=== PATIENT | male | born 1950 | race Caucasian/White ===

== ENCOUNTER 2019-09-03 16:14 | Observation (INO) | payer OTHER ==
[~2019-09-03] VITALS: Ht 172.7 cm; Wt 99.5 kg
[2019-09-03] MEDS ORDERED: FLOMAX0.4 MG PO (16:23)
[2019-09-03] MEDS ORDERED: PREVACID15 MG PO (16:23)
[2019-09-03] MEDS ORDERED: LIDOCAINE 5 % O35 GM TOPICAL (16:23)
[2019-09-03] MEDS ORDERED: VITAMIN D31000 UNI2 PO (16:24)
[2019-09-03] MEDS ORDERED: VESICARE5 MG PO (16:24)
[2019-09-03] MEDS ORDERED: ISOSORBIDE MONO30 M1 PO (16:24)
[2019-09-03] MEDS ORDERED: KLOR-CON 1010 MEQ PO (16:24)
[2019-09-03] MEDS ORDERED: CYMBALTA60 MG PO (16:25)
[2019-09-03] MEDS ORDERED: PROCARDIA XL60 MG PO (16:25)
[2019-09-03] MEDS ORDERED: NEURONTIN800 MG PO (16:25)
[2019-09-03] MEDS ORDERED: DONEPEZIL HCL10 MG PO (16:26)
[2019-09-03] MEDS ORDERED: LASIX40 MG PO (16:26)
[2019-09-03] MEDS ORDERED: ZOCOR80 MG PO (16:26)
[2019-09-03] MEDS ORDERED: DILAUDID8 MG PO (16:27)
[2019-09-03] MEDS ORDERED: VOLTAREN100 GM TOPICAL (16:27)
[2019-09-03 17:54] LABS: BASOPHILS 0.3 % (0-2); EOSINOPHILS 0.3 % (0-7); HEMATOCRIT 36.4 % (42.0-54.0); HEMOGLOBIN 11.9 g/dL (13.5-17.5); IMMATURE GRANULOCYTES 0.3 % (0-5); LYMPHOCYTES 15.1 % (15-50); MCH 27.9 pg (26.0-34.0); MCHC 32.7 g/dL (31.0-37.0); MCV 85.2 fL (80.0-100.0); MEAN PLATELET VOLUME 9.4 fL (7.4-10.4); MONOCYTES 9.4 % (2-11); NEUTROPHILS 74.6 % (40-80); PLATELET COUNT 255 10x3/uL (130-400); RBC 4.27 10x6/uL (4.20-6.10); RDW 15.1 % (11.5-14.5); WBC 7.2 10x3/uL (4.8-10.8)
[2019-09-03 18:04] LABS: APTT 29.7 SECONDS (22.8-39.4); INR 1.03 (0.85-1.17); PROTIME 13.4 SECONDS (11.6-15.0)
[2019-09-03 18:06] LABS: CALC OSMOLALITY 284 mosm/kg (275-300); CALCIUM 8.9 mg/dL (8.5-10.1); CARBON DIOXIDE 28.3 mmol/L (21.0-32.0); CHLORIDE - SERUM 106 mmol/L (98-107); CREATININE - SERUM 1.1 mg/dL (0.6-1.3); GLUCOSE 111 mg/dL (74-106); POTASSIUM - SERUM 3.9 mmol/L (3.5-5.1); SODIUM 143 mmol/L (136-145); UREA NITROGEN 11 mg/dL (7-18); eGFR NON AFRICAN AMERICAN 71 mL/min (90-120)
[2019-09-03 18:20] LABS: ALBUMIN 3.4 g/dL (3.4-5.0); ALKALINE PHOSPHATASE 95 U/L (46-116); ALT (SGPT) 19 U/L (10-68); BILIRUBIN - TOTAL 0.32 mg/dL (0.2-1.3); CKMB 1.3 U/L (0.0-3.6); CREATINE KINASE 71 UL (21-232); MAGNESIUM - SERUM 1.9 mg/dL (1.8-2.4); PROTEIN - SERUM 7.5 g/dL (6.4-8.2)
[2019-09-03 18:22] LABS: TROPONIN-I < 0.017 ng/mL (0.000-0.060)
[2019-09-03 18:56] VITALS: BP 100/61
[2019-09-03 23:47] VITALS: BP 131/72; Ht 172.7 cm; Wt 99.5 kg
[2019-09-04] VITALS: BP 123/60
--- NOTE | 2019-09-04 01:35 | NUR ---
PATIENT RESTING COMFORTABLY IN BED. RESPIRATIONS ARE EVEN AND UNLABORED. NO S/S OF DISTRESS. NO C/O PAIN CALL LIGHT WITHIN REACH. WILL CPOC.
[2019-09-04 04:30] VITALS: BP 119/58
[2019-09-04 04:34] LABS: BASOPHILS 0.3 % (0-2); EOSINOPHILS 1.1 % (0-7); HEMATOCRIT 32.9 % (42.0-54.0); HEMOGLOBIN 10.7 g/dL (13.5-17.5); LYMPHOCYTES 23.5 % (15-50); MCH 27.6 pg (26.0-34.0); MCHC 32.5 g/dL (31.0-37.0); MEAN PLATELET VOLUME 9.4 fL (7.4-10.4); MONOCYTES 11.5 % (2-11); NEUTROPHILS 63.6 % (40-80); PLATELET COUNT 251 10x3/uL (130-400); RBC 3.87 10x6/uL (4.20-6.10); RDW 15.3 % (11.5-14.5); WBC 6.3 10x3/uL (4.8-10.8)
[2019-09-04 05:06] LABS: CALC OSMOLALITY 284 mosm/kg (275-300); CALCIUM 8.5 mg/dL (8.5-10.1); CARBON DIOXIDE 25.7 mmol/L (21.0-32.0); CHLORIDE - SERUM 108 mmol/L (98-107); GLUCOSE 106 mg/dL (74-106); MAGNESIUM - SERUM 1.8 mg/dL (1.8-2.4); PHOSPHOROUS 4.2 mg/dL (2.5-4.9); POTASSIUM - SERUM 3.6 mmol/L (3.5-5.1); PRO BNP 533 pg/mL (0-125); SODIUM 142 mmol/L (136-145); THYROID STIMULATING HORMONE 0.75 uIU/mL (0.36-3.74); eGFR NON AFRICAN AMERICAN 79 mL/min (90-120)
[2019-09-04 05:11] LABS: UREA NITROGEN 19 mg/dL (7-18)
[2019-09-04 12:26] VITALS: BP 151/76
--- NOTE | 2019-09-04 13:32 | NUR ---
ORTHOSTATIC B/P: LYING 129/72 99, SITTING 138/73 105, STANDING 122/73 117.
[2019-09-04 16:02] VITALS: BP 129/84
--- NOTE | 2019-09-04 18:22 | MORECARE ---
CASE MANAGEMENT DISCHARGE SUMMARY PATIENT: ABRIL CALLAHAN UNIT: [id number] ADM DATE: 09/03/19 AGE: 69 : 52 SEX: M ROOM/BED: D.2115 AUTHOR: TORI GARCIA PHYSICIAN: REFERRING PHYSICIAN: TR SMITH MD DATE OF SERVICE: 09/04/19 Discharge Plan Patient Name: ABRIL CALLAHAN Facility: [facility]:[place] : 1950 Planned Disposition: Home Anticipated Discharge Date: 09/05/19 Discharge Date: Expected LOS: 2 Initial Reviewer: [email or web address] Initial Review Date: 09/03/2019 Generated: 09/04/19 7:22 pm Patient Name: ABRIL CALLAHAN Page 12422 at 1822 All edits/amendments must be made on the electronic document DICTATION DATE: 09/04/191821 CARD READER: LESLIE 09/04/191821 RPT#: [id number] DC DATE: STATUS: ADM IN [address] [place] [address] END OF REPORT
--- NOTE | 2019-09-04 18:30 | MORECARE ---
CASE MANAGEMENT DISCHARGE SUMMARY PATIENT: ABRIL CALLAHAN UNIT: [id number] ADM DATE: 09/03/19 AGE: 69 : 52 SEX: M ROOM/BED: D.5299 AUTHOR: JOSE,DOC PHYSICIAN: REFERRING PHYSICIAN: TR SMITH MD DATE OF SERVICE: 09/04/19 Discharge Plan Patient Name: ABRIL CALLAHAN Facility: [facility]:[place] : 1950 Planned Disposition: Home Anticipated Discharge Date: 09/05/19 Discharge Date: Expected LOS: 2 Initial Reviewer: [email or web address] Initial Review Date: 09/03/2019 Generated: 09/04/19 7:30 pm Comments DCP- Discharge Planning Updated by [email or web address]: Óscar Santos on 09/04/19 5:[address] Patient Name: ABRIL CALLAHAN Admission Status: ER Accout number: [id number] Admission Date: 09-03-2019 : 1950 Admission Diagnosis: Attending: ANDREW Current LOS: 1 Anticipated DC Date: 09-05-2019 Planned Disposition: Home Primary Insurance: [employer] Discharge Planning Comments: CM MET WITH PT IN ROOM TO DISCUSS DISCHARGE PLANNING AND NEEDS. PT REPORTS LIVING AT HOME INDEPENDENTLY WITH SPOUSE. PT HAS HOME OXYGEN CONCENTRATOR THAT GOES UP TO 10 LITERS, BENINESE CRUTHES AND ADJUSTABLE BED FROM [facility]. PT HAS NO OUTSIDE SERVICES ASSISTING IN THE HOME. CM DISCUSSED AVAILABILITY OF HOME HEALTH, REHAB SERVICES AND MEDICAL EQUIPMENT. PT DENIES DISCHARGE NEEDS AND DOES WANT [place] THE [place] TRANSF[place], REPORTS HIS WILL PICK HIM UP FOR DISCHARGE HOME. REY PAREDES CALLED [place] EXPEDITOR AND PLACED [place] TRAN[place]. PT PLANS TO COMPLETE TREATMENT AT [place] AND GO HOME WITH IF NO [place]. THERE IS NO [facility] BED AVAILABLE AT THIS TIME AND THE [place] WILL NOTIFY [place] IF A BED DOES COME AVAILABLE FOR TRANSFER. Anchor Operator: Óscar Santos DCPIA - Discharge Planning Initial Assessment Updated by [email or web address]: Óscar Santos on 09/04/19 6:22 pm * Is the patient Alert and Oriented? Yes * How many steps to enter\exit or inside your home? * PCP DR. ADAM, [facility] DR. GARDUNO * [facility] * Preadmission Environment Home with Family * ADLs Independent * Equipment Crutch Hospital Bed Oxygen * Other Equipment [facility] - MEDICAL EQUIPMENT PROVIDER * List name and contact numbers for known caregivers / representatives who currently or will assist patient after discharge: RAJEEV CALLAHAN, SPOUSE, * Verbal permission to speak to the caregivers and representatives has been obtained from the patient. N/A * Community resources currently utilized None * Please name any agencies selected above. NONE * Additional services required to return to the preadmission environment? No * Can the patient safely return to the preadmission environment? Yes * Has this patient been hospitalized within the prior 30 days at any hospital? No Last DP export: 09/04/19 5:22 p Patient Name: ABRIL CALLAHAN Page 67194 at 1830 All edits/amendments must be made on the electronic document DICTATION DATE: 09/04/191829 BOILER HELPER: LESLIE 09/04/191829 RPT#: [id number] DC DATE: STATUS: ADM IN [facility] [address] [place] [address] END OF REPORT
[2019-09-04 20:00] VITALS: BP 130/80
[2019-09-05] VITALS: BP 152/84
[2019-09-05 04:00] VITALS: BP 155/76
[2019-09-05 06:12] LABS: BASOPHILS 0.6 % (0-2); EOSINOPHILS 2.6 % (0-7); HEMATOCRIT 33.8 % (42.0-54.0); HEMOGLOBIN 10.9 g/dL (13.5-17.5); LYMPHOCYTES 30.9 % (15-50); MCH 27.2 pg (26.0-34.0); MCHC 32.2 g/dL (31.0-37.0); MCV 84.3 fL (80.0-100.0); MEAN PLATELET VOLUME 9.2 fL (7.4-10.4); MONOCYTES 11.7 % (2-11); NEUTROPHILS 54.2 % (40-80); PLATELET COUNT 237 10x3/uL (130-400); RBC 4.01 10x6/uL (4.20-6.10); RDW 15.2 % (11.5-14.5)
[2019-09-05 06:32] LABS: CALC OSMOLALITY 289 mosm/kg (275-300); CALCIUM 9.1 mg/dL (8.5-10.1); CARBON DIOXIDE 29.8 mmol/L (21.0-32.0); CHLORIDE - SERUM 109 mmol/L (98-107); GLUCOSE 100 mg/dL (74-106); MAGNESIUM - SERUM 2.1 mg/dL (1.8-2.4); PHOSPHOROUS 3.6 mg/dL (2.5-4.9); SODIUM 144 mmol/L (136-145); UREA NITROGEN 20 mg/dL (7-18)
[2019-09-05 06:45] LABS: CREATININE - SERUM 0.7 mg/dL (0.6-1.3); eGFR NON AFRICAN AMERICAN > 90 mL/min (90-120)
--- NOTE | 2019-09-05 07:15 | NUR ---
RECEIVED PT IN BED EYES CLOSED RESP UNLABORED SKIN W/D COLOR WNL NAD NOTED
[2019-09-05 09:02] VITALS: BP 151/84
[2019-09-05 13:00] VITALS: BP 135/90
--- NOTE | 2019-09-06 12:35 | MORECARE ---
CASE MANAGEMENT DISCHARGE SUMMARY PATIENT: ABRIL CALLAHAN UNIT: [id number] ADM DATE: 09/03/19 AGE: 69 : 52 SEX: M ROOM/BED: D.0383 AUTHOR: JOSE,DOC PHYSICIAN: REFERRING PHYSICIAN: TR SMITH MD DATE OF SERVICE: 09/06/19 Discharge Plan Patient Name: ABRIL CALLAHAN Facility: [facility]:[place] : 1950 Planned Disposition: Home Anticipated Discharge Date: 09/05/19 Discharge Date: 09/05/2019 Expected LOS: 2 Initial Reviewer: [email or web address] Initial Review Date: 09/03/2019 Generated: 09/06/19 1:34 pm DCP- Discharge Planning Updated by [email or web address]: Óscar Santos on 09/04/19 5:[address] Patient Name: ABRIL CALLAHAN Admission Status: ER Accout number: [id number] Admission Date: 09-03-2019 : 1950 Admission Diagnosis: Attending: ANDREW Current LOS: 1 Anticipated DC Date: 09-05-2019 Planned Disposition: Home Primary Insurance: [employer] Discharge Planning Comments: CM MET WITH PT IN ROOM TO DISCUSS DISCHARGE PLANNING AND NEEDS. PT REPORTS LIVING AT HOME INDEPENDENTLY WITH SPOUSE. PT HAS HOME OXYGEN CONCENTRATOR THAT GOES UP TO 10 LITERS, CYMRO CRUTHES AND ADJUSTABLE BED FROM [facility]. PT HAS NO OUTSIDE SERVICES ASSISTING IN THE HOME. CM DISCUSSED AVAILABILITY OF HOME HEALTH, REHAB SERVICES AND MEDICAL EQUIPMENT. PT DENIES DISCHARGE NEEDS AND DOES WANT TO BE ON THE [place] TRANSF[place] LIST, REPORTS HIS WILL PICK HIM UP FOR DISCHARGE HOME. REY PAREDES CALLED [place] EXPEDITOR AND PLACED PT ON [place] TRANSF[place]. PT PLANS TO COMPLETE TREATMENT AT [place] AND GO HOME WITH IF NO BED IS AVAILABLE AT [place]. THERE IS NO VA BED AVAILABLE AT THIS TIME AND THE NH WILL NOTIFY [place] IF A BED DOES COME AVAILABLE FOR TRANSFER. Licensing Director: Óscar Santos DCPIA - Discharge Planning Initial Assessment Updated by [id number]: Óscar Santos on 09/04/19 6:22 pm * Is the patient Alert and Oriented? Yes * How many steps to enter\exit or inside your home? * PCP DR. ADAM, [facility] DR. GARDUNO * [facility] * Preadmission Environment Home with Family * ADLs Independent * Equipment Crutch Hospital Bed Oxygen * Other Equipment [facility] - MEDICAL EQUIPMENT PROVIDER * List name and contact numbers for known caregivers / representatives who currently or will assist patient after discharge: RAJEEV CALLAHAN, SPOUSE, * Verbal permission to speak to the caregivers and representatives has been obtained from the patient. N/A * Community resources currently utilized None * Please name any agencies selected above. NONE * Additional services required to return to the preadmission environment? No * Can the patient safely return to the preadmission environment? Yes * Has this patient been hospitalized within the prior 30 days at any hospital? No Last DP export: 09/04/19 5:30 p Patient Name: ABRIL CALLAHAN Page 72087 at 1235 All edits/amendments must be made on the electronic document DICTATION DATE: 09/06/19 1234 MANAGER OF PRODUCT: LESLIE 09/06/19 1234 RPT#: [id number] DC DATE:09/05/19 STATUS: DIS IN [facility] [address] [place] [address] END OF REPORT
--- NOTE | 2019-09-07 12:18 | EC ---
PATIENT:ABRIL CALLAHAN DATE OF SERVICE: 09/03/19 SEX: M MEDICAL RECORD: [id number] DATE OF : [birth year] LOCATION:D.M2 D.211 AGE OF PATIENT: 69 ADMISSION DATE: 09/03/19 REFERRING PHYSICIAN: INTERPRETING PHYSICIAN: WALI POSADA MD ECHOCARDIOGRAM REPORT ECHO CHARGES 4 ECHO COMPLETE Date: 09/04/19 CLINICAL DIAGNOSIS: SYNCOPE, HYPOTENSION, HX: HYPRTENSION ECHOCARDIOGRAPHIC MEASUREMENTS (adult normal given) AC root (d.<3.7cm) 2.8 cm LV Septum d (<1.2 cm> 0.9 cm Valve Excursion 2.0 cm LV Septum (systole) 1.5 cm Left Atria (s.<4.0cm> 4.2 cm LVPW d(<1.2cm) 0.98 cm RV (d.<2.3cm) 3.2 cm LVPW (sytole) 1.0 cm LV diastole(<5.6CM) 5.7 cm MV E-F(>70mm/sec) cm LV systole 4.5 cm LVOT Diameter 1.7 cm MV exc.(>10mm) cm Est.ejection fraction (50-75%) % DOPPLER: LVIT cm/sec A 90 cm/sec E 79 cm/sec LA cm/sec RVSP 39.9 mmHg LVOT 137 cm/sec AOP1/2T m/s Asc. Ao 190 cm/sec RVOT 96 cm/sec RA cm/sec PA 144 cm/sec AV Gradient Peak 14.5 mmHg AV Mean 9.6 mmHg AV Area 1.6 cm MV Gradient Peak 4.3 mmHg MV Mean 2.9 mmHg MV Area cm COMMENTS: Financial Supervisor: Polo CARTER Accessioner: 3 Dr. Palmer TAPE# PACS Pericardial Effusion N DATE OF SERVICE: Adequate 2D echo, color flow imaging and spectral Doppler, and M-Mode No LVH. LV internal dimension is normal. Wall motion is normal. EF is greater than or equal to 55%. Aortic valve is tricuspid. No evidence of stenosis by Doppler interrogation. Left atrium is normal. Mitral valve shows no prolapse. Trace MR. Right-sided chambers are grossly normal. Trace TR. TRANSINT:[id number] Voice Confirmation ID: [id number] DOCUMENT ID: [id number] ECHOCARDIOGRAM REPORT [id number] KEISABRIL POPE,WALI Gallegos MD at 1218 CC: [id number] DICTATION DATE: 09/05/19 1017 CRAP SHOOTER: 09/05/19 1254 DIS IN 09/05/19 [facility] [address] [place] [address]
== END 2019-09-05 18:30 | disposition home or self-care (01) ==
LOC: D.ER 16:14 → D.M2 19:18 → OBSVTIME 19:18 → D.M2 19:18
PROVIDERS: Family Medicine; ADMIT Family Medicine; ATTEND Family Medicine
DX: R55 Syncope and collapse (principal); I95.9 Hypotension, unspecified; D64.9 Anemia, unspecified; I10 Essential (primary) hypertension; G47.33 Obstructive sleep apnea (adult) (pediatric); E78.5 Hyperlipidemia, unspecified; F32.9 Major depressive disorder, single episode, unspecified; F03.90 Unspecified dementia, unspecified severity, without behavioral disturbance, psychotic disturbance, mood disturbance, and anxiety; M19.90 Unspecified osteoarthritis, unspecified site; G89.29 Other chronic pain; G62.9 Polyneuropathy, unspecified; E03.9 Hypothyroidism, unspecified

== ENCOUNTER 2019-12-13 15:29 | Emergency (ER) | payer OTHER ==
[~2019-12-13] VITALS: Ht 172.7 cm; Wt 90.9 kg
[~2019-12-13 15:29] MED LIST: CYMBALTA60 MG PO; DILAUDID8 MG PO; DONEPEZIL HCL10 MG PO; FLOMAX0.4 MG PO; ISOSORBIDE MONO30 M1 PO; KLOR-CON 1010 MEQ PO; LASIX40 MG PO; LIDOCAINE 5 % O35 GM TOPICAL; NEURONTIN800 MG PO; PREVACID15 MG PO; PROCARDIA XL60 MG PO; VESICARE5 MG PO; VITAMIN D31000 UNI2 PO; VOLTAREN100 GM TOPICAL; ZOCOR80 MG PO
[2019-12-13 15:45] VITALS: Ht 172.7 cm; Wt 90.9 kg
[2019-12-13 16:33] LABS: BASOPHILS 0.4 % (0-2); EOSINOPHILS 1.9 % (0-7); HEMATOCRIT 40.9 % (42.0-54.0); HEMOGLOBIN 12.8 g/dL (13.5-17.5); MCH 27.1 pg (26.0-34.0); MCHC 31.3 g/dL (31.0-37.0); MCV 86.7 fL (80.0-100.0); MEAN PLATELET VOLUME 9.5 fL (7.4-10.4); MONOCYTES 11.3 % (2-11); NEUTROPHILS 54.4 % (40-80); PLATELET COUNT 259 10x3/uL (130-400); RBC 4.72 10x6/uL (4.20-6.10); RDW 14.7 % (11.5-14.5); WBC 5.2 10x3/uL (4.8-10.8)
[2019-12-13 16:40] LABS: INR 0.96 (0.85-1.17); PROTIME 12.7 SECONDS (11.6-15.0)
[2019-12-13 16:41] LABS: APTT 31.4 SECONDS (22.8-39.4)
[2019-12-13 16:44] LABS: CALC OSMOLALITY 285 mosm/kg (275-300); CALCIUM 9.3 mg/dL (8.5-10.1); CARBON DIOXIDE 26.8 mmol/L (21.0-32.0); CHLORIDE - SERUM 107 mmol/L (98-107); CREATININE - SERUM 1.1 mg/dL (0.6-1.3); GLUCOSE 83 mg/dL (74-106); POTASSIUM - SERUM 3.7 mmol/L (3.5-5.1); SODIUM 143 mmol/L (136-145); UREA NITROGEN 18 mg/dL (7-18); eGFR NON AFRICAN AMERICAN 71 mL/min (90-120)
[2019-12-13 16:51] LABS: BILIRUBIN NEGATIVE (NEGATIVE); GLUCOSE NEGATIVE (NEGATIVE); KETONE NEGATIVE (NEGATIVE); NITRITE NEGATIVE (NEGATIVE); SPECIFIC GRAVITY 1.005 (1.005-1.020); UROBILINOGEN NORMAL (NORMAL)
[2019-12-13 17:00] LABS: ALKALINE PHOSPHATASE 114 U/L (30-120); ALT (SGPT) 21 U/L (10-68); BILIRUBIN - TOTAL 0.53 mg/dL (0.2-1.3); CKMB 2.1 U/L (0.0-3.6); CREATINE KINASE 84 UL (21-232); PRO BNP 774 pg/mL (0-125); PROTEIN - SERUM 8.7 g/dL (6.4-8.2)
[2019-12-13 17:02] LABS: TROPONIN-I < 0.010 ng/mL (0.000-0.060)
[2019-12-13] MEDS ORDERED: TYLENOL W/CODEI1 TAB PO (18:25)
[2019-12-13 18:37] VITALS: BP 148/86
== END 2019-12-13 18:38 | disposition home or self-care (01) ==
LOC: D.ER 15:29
PROVIDERS: Family Medicine
DX: R51 Headache (principal); R06.00 Dyspnea, unspecified; R05 Cough; R68.89 Other general symptoms and signs; I10 Essential (primary) hypertension; K21.9 Gastro-esophageal reflux disease without esophagitis; G62.9 Polyneuropathy, unspecified

== ENCOUNTER 2020-05-11 13:11 | Inpatient (IN) | payer OTHER ==
[~2020-05-11] VITALS: Ht 172.7 cm; Wt 118.7 kg
[~2020-05-11 13:11] MED LIST changes: +TYLENOL W/CODEI1 TAB PO
[2020-05-11 14:45] LABS: BASOPHILS 0.1 % (0-2); EOSINOPHILS 0 % (0-7); HEMATOCRIT 38.6 % (42.0-54.0); HEMOGLOBIN 12.4 g/dL (13.5-17.5); IMMATURE GRANULOCYTES 0.4 % (0-5); LYMPHOCYTES 8.8 % (15-50); MCH 28.1 pg (26.0-34.0); MCHC 32.1 g/dL (31.0-37.0); MCV 87.5 fL (80.0-100.0); MEAN PLATELET VOLUME 9.4 fL (7.4-10.4); MONOCYTES 10.1 % (2-11); NEUTROPHILS 80.6 % (40-80); PLATELET COUNT 257 10x3/uL (130-400); RBC 4.41 10x6/uL (4.20-6.10); RDW 15.1 % (11.5-14.5); WBC 18.1 10x3/uL (4.8-10.8)
[2020-05-11 15:11] LABS: CALC OSMOLALITY 272 mosm/kg (275-300); CALCIUM 9.1 mg/dL (8.5-10.1); CHLORIDE - SERUM 101 mmol/L (98-107); CREATININE - SERUM 0.9 mg/dL (0.6-1.3); GLUCOSE 124 mg/dL (74-106); SODIUM 136 mmol/L (136-145); UREA NITROGEN 12 mg/dL (7-18); eGFR NON AFRICAN AMERICAN 89 mL/min (90-120)
[2020-05-11 15:14] LABS: APTT 23.2 SECONDS (22.8-39.4); INR 1.02 (0.85-1.17); PROTIME 13.4 SECONDS (11.6-15.0)
[2020-05-11 15:20] LABS: ALBUMIN 3.2 g/dL (3.4-5.0); ALKALINE PHOSPHATASE 104 U/L (30-120); ALT (SGPT) 18 U/L (10-68); BILIRUBIN - TOTAL 0.77 mg/dL (0.2-1.3); CKMB 1.1 U/L (0.0-3.6); CREATINE KINASE 87 UL (21-232); PROTEIN - SERUM 7.8 g/dL (6.4-8.2)
[2020-05-11 15:21] LABS: TROPONIN-I < 0.017 ng/mL (0.000-0.060)
[2020-05-11 16:27] LABS: BILIRUBIN NEGATIVE (NEGATIVE); KETONE NEGATIVE (NEGATIVE); NITRITE NEGATIVE (NEGATIVE); UROBILINOGEN NORMAL mg/dL (< 2)
[2020-05-11 20:00] VITALS: BP 159/74
--- NOTE | 2020-05-11 20:42 | NUR ---
PT SITTING UP IN BED, PT DENIES NEEDS AT THIS TIME. PT PROVIDED WITH BLANKETS AND A URINAL. BED IN LOWEST POSITION, CALL LIGHT WITHIN REACH, WILL CONTINUE TO MONITOR.
--- NOTE | 2020-05-11 23:28 | NUR ---
PT OPENED DOOR AND TOLD NURSE HIS WIRES CAME UNHOOKED. PT STATES "I NEED TO GO TO THE BATHROOM ANYWAY." FRANK INFORMED PT DUE TO BEING IN ISOLATION THAT SHE WOULD BRING HIM A URINAL OR BEDSIDE COMMODE. BLEEDING NOTED FROM PT LEFT AC. WHEN NURSE ASK THE PT WHAT HAPPENED, PT STATES " I DONT KNOW WHAT HAPPENED." NURSE PLACED DRESSING OVER THE SITE AND D'C NS THAT WAS INFUSING PRIOR. PT ASSISTED BACK INTO BED AND BEDSIDE COMMODE BROUGHT TO PT. PT DENIES OTHER COMPLAINTS AT THIS TIME. NO ACUTE DISTRESS NOTED, SIDE RAILS UP, BED IN LOWEST POSITION, CALL LIGHT WITHIN REACH, WILL CONTINUE TO MONITOR.
[2020-05-12] VITALS (9 sets, daily range): BP systolic 102–165; BP diastolic 67–87; BMI 24.3
--- NOTE | 2020-05-12 00:30 | NUR ---
NURSE AT BEDSIDE. NURSE NOTED DROPS OF BLOOD ON GOWN AROUND RIGHT SHOULDER. NURSE ASKED PT IF HE KNEW WHAT HAD HAPPENED. PT DENIES KNOWING. NURSE ASSESSED THAT IV CATHETER WAS OUT OF PTS ARM. DRESSING PLACED OVER SITE TO CONTROL BLEEDING. PT STATES "I DONT KNKOW WHAT HAPPENED HERE. LOOK AT THAT TAPE ITS ALL TANGLED UP." NURSE INFORMED PT THAT HIS IV CAME OUT OF HIS ARM. FLORECITA GARCIA APRN WAS CONTACTED ABOUT NS ORDER. RITO GARCIA STATES THAT IT IS OK TO HOLD FLUID ORDER AT THIS TIME AND TO CONTINUE LOOKING FOR IV SITE AND TO CONSULT WITH VASCULAR ACCESS IN THE AM IF UNSUCCESSFUL. PT IN NO DISTRESS AT THIS TIME. WILL CONTINUE TO MONITOR FOR CHANGES.
[2020-05-12 02:05] LABS: ANION GAP 6.7 mmol/L (8-16); CARBON DIOXIDE 29.9 mmol/L (21.0-32.0)
[2020-05-12 02:08] LABS: POTASSIUM - SERUM 3.6 mmol/L (3.5-5.1)
[2020-05-12 08:23] LABS: BASOPHILS 0.1 % (0-2); EOSINOPHILS 0.8 % (0-7); HEMATOCRIT 37.1 % (42.0-54.0); HEMOGLOBIN 11.8 g/dL (13.5-17.5); IMMATURE GRANULOCYTES 0.6 % (0-5); LYMPHOCYTES 7.1 % (15-50); MCH 27.9 pg (26.0-34.0); MCHC 31.8 g/dL (31.0-37.0); MCV 87.7 fL (80.0-100.0); MEAN PLATELET VOLUME 9.3 fL (7.4-10.4); NEUTROPHILS 83.4 % (40-80); PLATELET COUNT 247 10x3/uL (130-400); RBC 4.23 10x6/uL (4.20-6.10); RDW 15.4 % (11.5-14.5); WBC 17.1 10x3/uL (4.8-10.8)
[2020-05-12 08:47] LABS: CALC OSMOLALITY 278 mosm/kg (275-300); CALCIUM 8.8 mg/dL (8.5-10.1); CARBON DIOXIDE 28.1 mmol/L (21.0-32.0); CHLORIDE - SERUM 103 mmol/L (98-107); CREATININE - SERUM 0.8 mg/dL (0.6-1.3); GLUCOSE 118 mg/dL (74-106); MAGNESIUM - SERUM 1.9 mg/dL (1.8-2.4); PHOSPHOROUS 1.8 mg/dL (2.5-4.9); POTASSIUM - SERUM 3.7 mmol/L (3.5-5.1); SODIUM 140 mmol/L (136-145); THYROID STIMULATING HORMONE 0.48 uIU/mL (0.36-3.74); UREA NITROGEN 9 mg/dL (7-18); eGFR NON AFRICAN AMERICAN > 90 mL/min (90-120)
--- NOTE | 2020-05-12 09:24 | NUR ---
PT SITTING UP IN BED WATCHING TV AT THIS TIME. RESPIRATIONS ARE EVEN AND UNLABORED. NO DISTRESS NOTED. COLOR WNL FOR RACE. VSS. WILL CONTINUE TO MONITOR. PT VOICES NO NEEDS AT THIS TIME.
--- NOTE | 2020-05-12 10:28 | NUR ---
ARRIVED WITH PATIENT BELONGINGS BELONGINGS GIVEN TO PATIENT. NAME AND NUMBER IS [id number]- KRYSTAL CALLAHAN
--- NOTE | 2020-05-12 11:43 | NUR ---
VOCID SWAB NEGATIVE PER LAB. ADVISED PATIENT AND .
--- NOTE | 2020-05-12 11:55 | NUR ---
PT PROVIDED WITH MEAL TRAY AT THIS TIME. PT DENIES OTHER NEEDS.
[2020-05-12 12:29] LABS: C-REACTIVE PROTEIN 29.2 mg/dL (0.0-0.9)
[2020-05-12 13:05] LABS: ERYTHROCYTE SEDIMENTATION RATE 75 mm/hr (0-20)
--- NOTE | 2020-05-12 13:10 | NUR ---
REPORT FROM TONI LE. NURSE STATES PT KEEPS PULLING IV OUT. PROVIDER AWARE OF NO IV SITE AT THIS TIME.
--- NOTE | 2020-05-12 13:45 | NUR ---
FLU SWAB OBTAINED AND SENT TO LAB
--- NOTE | 2020-05-12 15:03 | NUR ---
GLORIA ESTABLISHED 22 GA L AC
--- NOTE | 2020-05-12 15:26 | NUR ---
IV MEDICATIONS LATE DUE TO NO AVAILABLE PUMPS IN THE HOSPITAL
--- NOTE | 2020-05-12 16:31 | NUR ---
Pt admitted to [facility] 2102 from ER/stretcher, talking on cell phone in bed, Doxicycline w/approx 200cc's left in bag in progress to Left AC from ER to 22GA--IV is positional/patent--instructed pt to leave Left arm straight until IVPB complete w/understanding stated.
--- NOTE | 2020-05-12 17:36 | NUR ---
YELLOW GOWN, YELLOW ARM BAND, NON SKID SOCKS AND BED ALARM ARE ON AND IN PLACE CORRECTLY.
--- NOTE | 2020-05-12 19:58 | NUR ---
REPORT RECIEVED AND ROUNDING COMPLETE. PATIENT LAYING IN BED IN HIGH FOWLERS, PATIENT IS CONFUSED TO TIME AND PLACE. RIGHT ARM PIV IS RUNNING FLUIDS AT THIS TIME, PATENT. PATINET STATES HE HAS NO NEEDS AT THIS TIME. CALL LIGHT WITHIN REACH AND BED IN LOWEST LOCKED POSITION. NO DISTRESS NOTED AT THIS TIME.
[2020-05-13 04:00] VITALS: BP 111/75
--- NOTE | 2020-05-13 07:15 | NUR ---
RECEIVE SHIFT REPORT. RESTING IN BED WITH TV ON. RESPIRATORY AT BEDSIDE. DENIES ANY NEEDS AT THIS TIME. WILL CONTINUE PLAN OF CARE AND SAFETY PRECAUTIONS.
[2020-05-13 07:54] VITALS: BP 165/79
--- NOTE | 2020-05-13 08:08 | NUR ---
FAUCETS ASSEMBLER STATES HE HAS A TEMPERATURE OF 102.8. TYLENOL GIVEN PER EMAR. WILL REASSESS AND CONTINUE PLAN OF CARE.
[2020-05-13 09:40] LABS: BASOPHILS 0.1 % (0-2); EOSINOPHILS 0.1 % (0-7); HEMATOCRIT 30.6 % (42.0-54.0); HEMOGLOBIN 9.9 g/dL (13.5-17.5); IMMATURE GRANULOCYTES 0.4 % (0-5); LYMPHOCYTES 2.7 % (15-50); MCH 28.1 pg (26.0-34.0); MCHC 32.4 g/dL (31.0-37.0); MCV 86.9 fL (80.0-100.0); MEAN PLATELET VOLUME 9.1 fL (7.4-10.4); MONOCYTES 8.6 % (2-11); NEUTROPHILS 88.1 % (40-80); PLATELET COUNT 239 10x3/uL (130-400); RBC 3.52 10x6/uL (4.20-6.10); RDW 15.5 % (11.5-14.5); WBC 13.1 10x3/uL (4.8-10.8)
[2020-05-13 10:05] LABS: ANION GAP 11.9 mmol/L (8-16); CALCIUM 8.4 mg/dL (8.5-10.1); CARBON DIOXIDE 23.2 mmol/L (21.0-32.0); MAGNESIUM - SERUM 1.7 mg/dL (1.8-2.4)
[2020-05-13 10:42] LABS: CREATININE - SERUM 1.1 mg/dL (0.6-1.3); POTASSIUM - SERUM 3.1 mmol/L (3.5-5.1)
[2020-05-13 10:43] LABS: PHOSPHOROUS 1.3 mg/dL (2.5-4.9)
[2020-05-13 11:29] VITALS: BP 122/67
[2020-05-13 16:16] VITALS: BP 140/52
[2020-05-13 17:04] LABS: % SATURATION 4 % (15-55); IRON 11 ug/dl (35-150); TOTAL IRON BIND CAPACITY 237 ug/dl (260-445); UNSAT IRON BIND CAPACITY 226 ug/dl (150-375)
--- NOTE | 2020-05-13 17:14 | NUR ---
TEMP 102. URGENT BLOOD CULTURES ORDERED AND LAB IS CALLED. SPOKE WITH TOM IN THE LAB.
--- NOTE | 2020-05-13 19:30 | NUR ---
PT IN BED, AAO X 1, RESP EVEN AND UNLABORED, NO DISTRESS NOTED, CL IN REACH, SR UP X 2.
[2020-05-13 20:17] VITALS: BP 112/61
[2020-05-13 22:43] VITALS: BP 87/48
--- NOTE | 2020-05-14 04:02 | NUR ---
I have reviewed this patient and I concur with the Shift Assessment completed by the Licensed Practical Nurse today this shift.
[2020-05-14 05:33] VITALS: BP 85/42
[2020-05-14 05:59] LABS: HEMATOCRIT 27.2 % (42.0-54.0); HEMOGLOBIN 8.9 g/dL (13.5-17.5); MCH 28.3 pg (26.0-34.0); MCHC 32.7 g/dL (31.0-37.0); MCV 86.6 fL (80.0-100.0); MEAN PLATELET VOLUME 9.7 fL (7.4-10.4); PLATELET COUNT 200 10x3/uL (130-400); RBC 3.14 10x6/uL (4.20-6.10); RDW 15.7 % (11.5-14.5); WBC 21.7 10x3/uL (4.8-10.8)
[2020-05-14 06:04] LABS: ANION GAP 17.7 mmol/L (8-16); CALCIUM 8.3 mg/dL (8.5-10.1); CARBON DIOXIDE 21.1 mmol/L (21.0-32.0); MAGNESIUM - SERUM 1.4 mg/dL (1.8-2.4)
[2020-05-14 06:14] LABS: CREATININE - SERUM 1.7 mg/dL (0.6-1.3); PHOSPHOROUS 3.9 mg/dL (2.5-4.9)
[2020-05-14 06:15] LABS: POTASSIUM - SERUM 2.8 mmol/L (3.5-5.1)
[2020-05-14 06:34] LABS: LYMPHOCYTES 9 % (15-50); MONOCYTES 4 % (2-11); NEUTROPHILS 87 % (40-80); PLATELET ESTIMATE NORMAL; ROULEAUX OCC
[2020-05-14 08:31] VITALS: BP 94/57
--- NOTE | 2020-05-14 10:55 | NUR ---
PT ALERT AND ORIENTED LYING IN BED. NO COMPLAINTS OR CONCERS AT HIS TIME. AT BEDSIDE. TOOK MEDICATIONS WITHOUT COMPLICATIONS. CL IN REACH,S RX2.
[2020-05-14 11:45] VITALS: BP 90/52
[2020-05-14 11:51] LABS: BACTERIA FEW HPF (NONE SEEN); BILIRUBIN NEGATIVE (NEGATIVE); KETONE NEGATIVE (NEGATIVE); NITRITE NEGATIVE (NEGATIVE); UROBILINOGEN NORMAL mg/dL (< 2); WHITE CELLS - URINE 0-5 HPF (0-1)
[2020-05-14 11:52] LABS: GRANULAR CAST 0-5 LPF (NONE SEEN)
[2020-05-14 12:45] LABS: AMYLASE - SERUM 12 U/L (25-115)
[2020-05-14 12:46] LABS: LIPASE 39 U/L (73-393)
[2020-05-14 13:58] LABS: MAGNESIUM - SERUM 1.5 mg/dL (1.8-2.4); POTASSIUM - SERUM 3.3 mmol/L (3.5-5.1)
--- NOTE | 2020-05-14 17:12 | NUR ---
I have reviewed this patient and I concur with the Shift Assessment completed by the Licensed Practical Nurse today this shift.
--- NOTE | 2020-05-14 19:00 | NUR ---
REPORT RECEIVED, PT CARE ASSUMED. INTRODUCED SELF AND WROTE NAME ON BOARD. PT SITTING UP IN BED, WATCHING TV, AAOX3, REORIENTED TO SITUATION. DENIES ANY NEEDS AT THIS TIME. BED IN LOWEST, SRX1, CALL LIGHT WITHIN REACH. WILL CTM.
[2020-05-14 20:45] VITALS: BP 92/57
[2020-05-15 00:04] VITALS: BP 104/54
[2020-05-15 05:34] VITALS: BP 107/63
[2020-05-15 06:35] LABS: BASOPHILS 0 % (0-2); EOSINOPHILS 0 % (0-7); HEMATOCRIT 29.3 % (42.0-54.0); HEMOGLOBIN 9.6 g/dL (13.5-17.5); IMMATURE GRANULOCYTES 7.9 % (0-5); LYMPHOCYTES 5.2 % (15-50); MCH 27.8 pg (26.0-34.0); MCHC 32.8 g/dL (31.0-37.0); MCV 84.9 fL (80.0-100.0); MONOCYTES 4.5 % (2-11); NEUTROPHILS 82.4 % (40-80); PLATELET COUNT 259 10x3/uL (130-400); RBC 3.45 10x6/uL (4.20-6.10); WBC 27.3 10x3/uL (4.8-10.8)
[2020-05-15 07:04] LABS: CALCIUM 8.2 mg/dL (8.5-10.1); CARBON DIOXIDE 21.4 mmol/L (21.0-32.0); CREATININE - SERUM 1.4 mg/dL (0.6-1.3); MAGNESIUM - SERUM 1.6 mg/dL (1.8-2.4); POTASSIUM - SERUM 3.4 mmol/L (3.5-5.1)
[2020-05-15 07:10] LABS: PHOSPHOROUS 2.2 mg/dL (2.5-4.9)
[2020-05-15 08:23] VITALS: BP 150/73
[2020-05-15 12:19] VITALS: BP 109/70
--- NOTE | 2020-05-15 14:19 | NUR ---
I have reviewed this patient and I concur with the Shift Assessment completed by the Licensed Practical Nurse today this shift.
[2020-05-15 16:00] VITALS: BP 119/68
--- NOTE | 2020-05-15 18:04 | NUR ---
PT AWAKE AND CONFUSED THROUGHOUT THE DAY. MORE CONFUSED THAN PREVIOUS DAY, BUT STILL INLINE WITH PTS BASELINE MENTAL STATUS. PT CAME OUT OF ROOM THIS AM STATING HE WAS GOING TO HELP THE MAINTANCE PEOPLE LIKE HE HAD BEEN ALL DAY. EASILY REDIRECTED. PT IN ROOM VISITING THROUGHOUT THE DAY, SERVICE DOG IN TOW. NO COMPLAINTS OR CONCERNS AT HIS TIME. ADMINSITERED AND CONSUMED ALL MEDICATIONS WITHOUT COMPLICATIONS. CL INR EACH, SRX2. AT BEDSIDE. WILL CNT. TO MONITOR. PLACED ON TELEMTRY. ITEMS IN PLACE FOR STOOL SAMPLE COLLECTIONS.
--- NOTE | 2020-05-15 19:10 | NUR ---
PATIENT RESTING IN BED WITH NO S/S OF DISTRESS. GUEST AT BEDSIDE. PATIENT DENIES NEEDS AT THIS TIME. BED IN LOWEST POSITION AND CALL LIGHT WITHIN REACH. ENCOURAGED THE PATIENT TO CALL IF HE HAS NEEDS. WILL CONTINUE TO MONITOR.
--- NOTE | 2020-05-15 19:40 | NUR ---
ASSISTED PATIENT TO AND FROM RESTROOM. PATIENT VOIDED. DENIES OTHER NEEDS AT THIS TIME. PATIENT CONFUSED AT THIS TIME. PLACED CINDY ALARM ON PATIENT'S BED, YELLOW GOWN ON, NON-SLIP SOCKS ON, CALL LIGHT WITHIN REACH. ENCOURAGED PATIENT TO CALL WITH NEEDS. WILL CONTINUE TO MONITOR.
--- NOTE | 2020-05-15 20:20 | NUR ---
ADMINISTERED MEDS PER ORDERS. PATIENT DENIES OTHER NEEDS. WILL CONTINUE TO MONITOR.
[2020-05-15 21:02] VITALS: BP 100/64
[2020-05-16 00:45] VITALS: BP 105/60
--- NOTE | 2020-05-16 01:05 | NUR ---
PATIENT PULLED IV IN LEFT FA OUT AND REDNESS AND PAIN NOTED IN LEFT AC IV. REMOVED LEFT AC PIV. THREE NURSES ATTEMPTED TO GAIN IV ACCESS AND WERE UNABLE.
[2020-05-16 04:37] VITALS: BP 112/53
[2020-05-16 07:08] LABS: ANION GAP 15.5 mmol/L (8-16); CALCIUM 8.7 mg/dL (8.5-10.1); CARBON DIOXIDE 22.1 mmol/L (21.0-32.0); CREATININE - SERUM 1.2 mg/dL (0.6-1.3); MAGNESIUM - SERUM 1.9 mg/dL (1.8-2.4); PHOSPHOROUS 2.4 mg/dL (2.5-4.9); POTASSIUM - SERUM 3.6 mmol/L (3.5-5.1)
[2020-05-16 07:50] VITALS: BP 106/57
[2020-05-16 07:57] LABS: BASOPHILS 0.1 % (0-2); EOSINOPHILS 0.1 % (0-7); HEMATOCRIT 28.4 % (42.0-54.0); HEMOGLOBIN 9.2 g/dL (13.5-17.5); IMMATURE GRANULOCYTES 0.5 % (0-5); LYMPHOCYTES 5.6 % (15-50); MCH 27.3 pg (26.0-34.0); MCHC 32.4 g/dL (31.0-37.0); MCV 84.3 fL (80.0-100.0); MEAN PLATELET VOLUME 9.5 fL (7.4-10.4); MONOCYTES 3.9 % (2-11); NEUTROPHILS 89.8 % (40-80); PLATELET COUNT 295 10x3/uL (130-400); RBC 3.37 10x6/uL (4.20-6.10); RDW 16.1 % (11.5-14.5); WBC 17.3 10x3/uL (4.8-10.8)
[2020-05-16 12:01] VITALS: BP 119/66
[2020-05-16 14:09] LABS: EHRLICHIA CHAFF IGG Negative (Neg:<1:64); EHRLICHIA CHAFF IGM Negative (Neg:<1:20); HGE IGG TITER Negative (Neg:<1:64); HGE IGM TITER Negative (Neg:<1:20)
[2020-05-16 15:37] VITALS: BP 110/57
[2020-05-16 20:00] VITALS: BP 114/62
[2020-05-17] VITALS: BP 101/56
--- NOTE | 2020-05-17 04:56 | NUR ---
I have reviewed this patient and I concur with the Shift Assessment completed by the Licensed Practical Nurse today this shift.
[2020-05-17 06:59] VITALS: BP 106/59
[2020-05-17 07:16] LABS: BASOPHILS 0.1 % (0-2); EOSINOPHILS 1.4 % (0-7); HEMATOCRIT 28.7 % (42.0-54.0); HEMOGLOBIN 9.3 g/dL (13.5-17.5); IMMATURE GRANULOCYTES 1.4 % (0-5); LYMPHOCYTES 9.7 % (15-50); MCH 27.5 pg (26.0-34.0); MCHC 32.4 g/dL (31.0-37.0); MCV 84.9 fL (80.0-100.0); MEAN PLATELET VOLUME 9.2 fL (7.4-10.4); MONOCYTES 6.3 % (2-11); NEUTROPHILS 81.1 % (40-80); PLATELET COUNT 315 10x3/uL (130-400); RBC 3.38 10x6/uL (4.20-6.10); RDW 16.3 % (11.5-14.5); WBC 14.7 10x3/uL (4.8-10.8)
[2020-05-17 07:43] LABS: ALKALINE PHOSPHATASE 148 U/L (30-120); ALT (SGPT) 37 U/L (10-68); BILIRUBIN - TOTAL 0.32 mg/dL (0.2-1.3); CALC OSMOLALITY 280 mosm/kg (275-300); CALCIUM 8.5 mg/dL (8.5-10.1); CARBON DIOXIDE 24.9 mmol/L (21.0-32.0); CHLORIDE - SERUM 106 mmol/L (98-107); CREATININE - SERUM 0.9 mg/dL (0.6-1.3); GLUCOSE 115 mg/dL (74-106); POTASSIUM - SERUM 3.5 mmol/L (3.5-5.1); PROTEIN - SERUM 6.6 g/dL (6.4-8.2); SODIUM 140 mmol/L (136-145); eGFR NON AFRICAN AMERICAN 89 mL/min (90-120)
[2020-05-17 07:45] LABS: UREA NITROGEN 16 mg/dL (7-18)
--- NOTE | 2020-05-17 08:18 | NUR ---
HE IS CONFUSED, HIS LEGS ARE SWOLLEN. HE IS EATING BREAKFAST, NPO AT MIDNIGHT TONIGHT. THE CALL LIGTH IS WITHIN REACH AND THE BED ALARM IS ON.
--- NOTE | 2020-05-17 08:41 | MORECARE ---
CASE MANAGEMENT DISCHARGE SUMMARY PATIENT: ABRIL CALLAHAN UNIT: [id number] ADM DATE: 05/11/20 AGE: 69 : 52 SEX: M ROOM/BED: D.2103 AUTHOR: TORI GARCIA PHYSICIAN: REFERRING PHYSICIAN: NICOLA SALAZAR MD DATE OF SERVICE: 05/17/20 Discharge Plan Patient Name: ABRIL CALLAHAN [facility] [facility] 1950 Planned Disposition: Home Anticipated Discharge Date: Discharge Date: Expected LOS: Initial Reviewer: [email or web address] Initial Review Date: 05/17/2020 Generated: 05/17/20 9:40 am Comments DCP- Discharge Planning Updated by [email or web address]: Dina De La O on 05/16/20 10:[address] CM received call from Radha Cabrera from the [place] at [phone]. CM provided clinical update. Dina De La O Patient Name: ABRIL CALLAHAN Page 60484 at 0841 All edits/amendments must be made on the electronic document DICTATION DATE: 05/17/20840 GUNNER MATE: LESLIE 05/17/20840 RPT#: [id number] DC DATE: STATUS: ADM IN [facility] [address] [place] [address] END OF REPORT
--- NOTE | 2020-05-17 08:47 | MORECARE ---
CASE MANAGEMENT DISCHARGE SUMMARY PATIENT: ABRIL CALLAHAN UNIT: [id number] ADM DATE: 05/11/20 AGE: 69 : 52 SEX: M ROOM/BED: D.2103 AUTHOR: TORI GARCIA PHYSICIAN: REFERRING PHYSICIAN: NICOLA SALAZAR MD DATE OF SERVICE: 05/17/20 Discharge Plan Patient Name: ABRIL CALLAHAN Facility: [facility]:[place] : 1950 Planned Disposition: Home Anticipated Discharge Date: Discharge Date: Expected LOS: Initial Reviewer: [email or web address] Initial Review Date: 05/17/2020 Generated: 05/17/20 9:47 am Comments DCP- Discharge Planning Updated by [email or web address]: Michelle Samayoa on 05/17/20 7:[address] Patient Name: ABRIL CALLAHAN Admission Status: ER Accout number: [id number] Admission Date: 05-11-2020 : 1950 Admission Diagnosis:SEPSIS, UNSPECIFIED ORGANISM Attending: NICOLA SALAZAR Current LOS: 6 Anticipated DC Date: Planned Disposition: Home Primary Insurance: [employer] Discharge Planning Comments: CM met with patient to complete initial dc planning assessment. CM educated patient on the CM role and verbal consent given by patient to complete assessment. Patient lives at home with his spouse. At discharge patient plans to return and feels this is a safe discharge. CM discussed availability of home health, rehab services, and medical equipment. Patient is unsure of needs at this time. [facility] He has oxygen, but does not have portable oxygen per patient I called community daycare provider, Radha Cabrera, and faxed clinical. CM will continue to follow and will assist as needed with dc plans/needs. Radha Cabrera ([place] community Care) Phone - [phone] Fax - [phone] Melt House Centrifugal Operator: Michelle Samayoa DCP- Discharge Planning Updated by [email or web address]: Dina De La O on 05/16/20 10:[address] CM received call from Radha Cabrera from the [place] at [phone]. CM provided clinical update. Dina De La O DCPIA - Discharge Planning Initial Assessment Updated by [email or web address]: Michelle Samayoa on 05/17/20 8:41 am * Is the patient Alert and Oriented? Yes * How many steps to enter\exit or inside your home? 2/0 * [place]CP [place] [facility] [place] [facility] * Preadmission Environment Home with Family * ADLs Partial Dependent * Partial ADLs (Assistance needed) Ambulation Medication Management * Equipment Crutch Hospital Bed Nebulizer Other Oxygen * Other Equipment SERBIAN CRUTCH * List name and contact numbers for known caregivers / representatives who currently or will assist patient after discharge: Gayle Solis - [facility] - [phone] * Verbal permission to speak to the caregivers and representatives has been obtained from the patient. Yes * Community resources currently utilized [place] Services * Additional services required to return to the preadmission environment? Yes * Can the patient safely return to the preadmission environment? Yes * Has this patient been hospitalized within the prior 30 days at any hospital? No Last DP export: 05/17/20 7:41 a Patient Name: ABRIL CALLAHAN Page [phone] at 0847 All edits/amendments must be made on the electronic document DICTATION DATE: 05/17/20846 SWATCH CUTTER: LESLIE 05/17/20846 RPT#: [id number] DC DATE: STATUS: ADM IN [facility] [address] [place] [address] END OF REPORT
[2020-05-17 09:49] LABS: APTT 36.8 SECONDS (22.8-39.4); INR 1.08 (0.85-1.17)
[2020-05-17 10:41] LABS: NORMAL PLASMA / APTT 31.2 SECONDS (22.8-39.4); NORMAL PLASMA / PROTHROMBIN 12.2 SECONDS (11.6-15.0)
[2020-05-17 11:13] VITALS: Ht 172.7 cm; Wt 118.7 kg
[2020-05-17 12:05] VITALS: BP 120/53
--- NOTE | 2020-05-17 14:05 | MORECARE ---
CASE MANAGEMENT DISCHARGE SUMMARY PATIENT: ABRIL CALLAHAN UNIT: [id number] ADM DATE: 05/11/20 AGE: 69 : 52 SEX: M ROOM/BED: D.2103 AUTHOR: TORI GARCIA PHYSICIAN: REFERRING PHYSICIAN: NICOLA SALAZAR MD DATE OF SERVICE: 05/17/20 Discharge Plan Patient Name: ABRIL CALLAHAN Facility: [facility]:[place] : 1950 Planned Disposition: Home Anticipated Discharge Date: Discharge Date: Expected LOS: Initial Reviewer: [email or web address] Initial Review Date: 05/17/2020 Generated: 05/17/20 3:05 pm Comments DCP- Discharge Planning Updated by [email or web address]: Michelle Samayoa on 05/17/20 12:[address] CM noted spouse in room and I spoke with spouse concerning discharge needs. Spouse states the oxygen they have [facility] the [facility] that they [facility] 18 years [facility]. She states he doesn't use it and it probably hasn't been turned on in a year. She states he does not have portable oxygen. He will need a walk test prior to discharge to assess for home oxygen needs. She declines other needs at this time. CM will continue to follow and assist with discharge planning/needs. DCP- Discharge Planning Updated by [id number]: Michelle Samayoa on 05/17/20 7:[address] Patient Name: ABRIL CALLAHAN Admission Status: ER Accout number: [id number] Admission Date: 05-11-2020 : 1950 Admission Diagnosis:SEPSIS, UNSPECIFIED ORGANISM Attending: NICOLA SALAZAR Current LOS: 6 Anticipated DC Date: Planned Disposition: Home Primary Insurance: [employer] Discharge Planning Comments: CM met with patient to complete initial dc planning assessment. CM educated patient on the CM role and verbal consent given by patient to complete assessment. Patient lives at home with his spouse. At discharge patient plans to return and feels this is a safe discharge. CM discussed availability of home health, rehab services, and medical equipment. Patient is unsure of needs at this time. [facility]. He has oxygen, but does not have portable oxygen per patient I called community health care marketing manager, Radha Cabrera, and faxed clinical. CM will continue to follow and will assist as needed with dc plans/needs. Radha Cabrera ([place] community Care) Phone - [phone] Fax - [phone] Facility Practice Specialist: Michelle Samayoa DCP- Discharge Planning Updated by [email or web address]: Dina De La O on 05/16/20 10:[address] CM received call from Radha Cabrera from the [place] at [phone]. CM provided clinical update. Dina De La O DCPIA - Discharge Planning Initial Assessment Updated by [email or web address]: Michelle Samayoa on 05/17/20 8:41 am * Is the patient Alert and Oriented? Yes * How many steps to enter\exit or inside your home? 2/0 * [facility] [place] [facility] * Preadmission Environment Home with Family * ADLs Partial Dependent * Partial ADLs (Assistance needed) Ambulation Medication Management * Equipment Crutch Hospital Bed Nebulizer Other Oxygen * Other Equipment BOLIVIAN CRUTCH * List name and contact numbers for known caregivers / representatives who currently or will assist patient after discharge: Gayle Chanaмария - spouse - [phone] * Verbal permission to speak to the caregivers and representatives has been obtained from the patient. Yes * Community resources currently utilized [place] [facility] * Additional services required to return to the preadmission environment? Yes * Can the patient safely return to the preadmission environment? Yes * Has this patient been hospitalized within the prior 30 days at any hospital? No Last DP export: 05/17/20 7:47 a Patient Name: ABRIL CALLAHAN Page 56268 at 1405 All edits/amendments must be made on the electronic document DICTATION DATE: 05/17/20 1405 EDGE RUNNER: LESLIE 05/17/20 1405 RPT#: [id number] DC DATE: STATUS: ADM IN [facility] [address] [place] [address] END OF REPORT
[2020-05-17 16:20] VITALS: BP 131/76
--- NOTE | 2020-05-17 19:00 | NUR ---
REPORT RECEIVED, WILL CONTINUE POC. PATIENT IS ALERT BUT PLEASANTLY CONFUSED. NO S/S OF DISTRESS OBSERVED, RR EVEN AND UNLABORED ON 3.5L O2 VIA NC. PIV TO RT FA, PATENT, INFUSING NS @ 125ML/HR. PATIENT DENIES NEEDS AT THIS TIME. CL IN REACH, BED LOCKED AND LOWERED. WILL CTM.
[2020-05-17 20:00] VITALS: BP 147/76; BP 150/78
--- NOTE | 2020-05-17 21:34 | NUR ---
PATIENT'S CALLED FOR UPDATE. PASSWORD VERIFIED UPDATE GIVEN.
[2020-05-18 04:00] VITALS: BP 151/82
[2020-05-18 07:49] LABS: BASOPHILS 0.1 % (0-2); EOSINOPHILS 1.1 % (0-7); HEMATOCRIT 31.8 % (42.0-54.0); HEMOGLOBIN 10.3 g/dL (13.5-17.5); IMMATURE GRANULOCYTES 2.5 % (0-5); LYMPHOCYTES 10.5 % (15-50); MCH 27.9 pg (26.0-34.0); MCHC 32.4 g/dL (31.0-37.0); MCV 86.2 fL (80.0-100.0); MEAN PLATELET VOLUME 9.4 fL (7.4-10.4); MONOCYTES 8.2 % (2-11); NEUTROPHILS 77.6 % (40-80); PLATELET COUNT 352 10x3/uL (130-400); RBC 3.69 10x6/uL (4.20-6.10); RDW 16.4 % (11.5-14.5); WBC 15.4 10x3/uL (4.8-10.8)
[2020-05-18 07:58] LABS: CALC OSMOLALITY 277 mosm/kg (275-300); CALCIUM 9.1 mg/dL (8.5-10.1); CARBON DIOXIDE 25.1 mmol/L (21.0-32.0); CHLORIDE - SERUM 106 mmol/L (98-107); CREATININE - SERUM 0.9 mg/dL (0.6-1.3); GLUCOSE 108 mg/dL (74-106); POTASSIUM - SERUM 3.7 mmol/L (3.5-5.1); SODIUM 139 mmol/L (136-145); eGFR NON AFRICAN AMERICAN 89 mL/min (90-120)
[2020-05-18 08:09] LABS: UREA NITROGEN 11 mg/dL (7-18)
[2020-05-18 10:56] VITALS: BP 156/82
[2020-05-18 13:11] LABS: IMMUNOGLOBULIN E 29 IU/mL (6-495)
[2020-05-18 15:12] LABS: F. TULARENSIS - IGG Negative (Negative); F. TULARENSIS - IGM Negative (Negative)
[2020-05-18 16:09] VITALS: BP 165/81
--- NOTE | 2020-05-18 22:58 | NUR ---
2230 - PT TRANSFERRED TO ICU WHILE IN PACU, WITH HELP OF ICU STAFFERS. TRANSFER WITHOUT INCIDENT, VSS. READY FOR D\C TO ICU
[2020-05-18 23:00] VITALS: BP 129/57
--- NOTE | 2020-05-18 23:14 | NUR ---
Received Pt from the OR, no acute distress noted. Assessment per flow sheet, call light in reach, meds per MAR. Pt has left trip IJ noted, as well as incision to mid abd with BART drain noted. SCD on bilat and srinivasan cath draining clear yellow urine.
[2020-05-19] VITALS (24 sets, daily range): BP systolic 118–158; BP diastolic 55–94
[2020-05-19 05:18] LABS: BASOPHILS 0 % (0-2); EOSINOPHILS 0 % (0-7); HEMATOCRIT 28.7 % (42.0-54.0); HEMOGLOBIN 8.9 g/dL (13.5-17.5); IMMATURE GRANULOCYTES 1.5 % (0-5); MCH 27.6 pg (26.0-34.0); MCV 89.1 fL (80.0-100.0); MEAN PLATELET VOLUME 9.4 fL (7.4-10.4); MONOCYTES 3.9 % (2-11); NEUTROPHILS 91.6 % (40-80); PLATELET COUNT 455 10x3/uL (130-400); RBC 3.22 10x6/uL (4.20-6.10); WBC 20.8 10x3/uL (4.8-10.8)
[2020-05-19 05:21] LABS: CALCIUM 8.4 mg/dL (8.5-10.1); CARBON DIOXIDE 24.2 mmol/L (21.0-32.0); CHLORIDE - SERUM 107 mmol/L (98-107); CREATININE - SERUM 0.9 mg/dL (0.6-1.3); MAGNESIUM - SERUM 1.6 mg/dL (1.8-2.4); PHOSPHOROUS 3.7 mg/dL (2.5-4.9); SODIUM 138 mmol/L (136-145); eGFR NON AFRICAN AMERICAN 89 mL/min (90-120)
[2020-05-19 05:29] LABS: CALC OSMOLALITY 279 mosm/kg (275-300); GLUCOSE 157 mg/dL (74-106); UREA NITROGEN 14 mg/dL (7-18)
[2020-05-19 11:11] LABS: IMMUNOGLOBULIN E 39 IU/mL (6-495)
[2020-05-19 11:11] LABS: PROTEIN S - FREE 141 % (57-157); PROTEIN S - TOTAL 123 % (60-150)
[2020-05-19 11:54] LABS: BASOPHILS 0.1 % (0-2); EOSINOPHILS 0 % (0-7); HEMATOCRIT 24.9 % (42.0-54.0); HEMOGLOBIN 7.8 g/dL (13.5-17.5); IMMATURE GRANULOCYTES 1.4 % (0-5); LYMPHOCYTES 6.3 % (15-50); MCH 27.7 pg (26.0-34.0); MCHC 31.3 g/dL (31.0-37.0); MCV 88.3 fL (80.0-100.0); MEAN PLATELET VOLUME 8.9 fL (7.4-10.4); MONOCYTES 5.9 % (2-11); NEUTROPHILS 86.3 % (40-80); PLATELET COUNT 423 10x3/uL (130-400); RBC 2.82 10x6/uL (4.20-6.10); RDW 16.8 % (11.5-14.5); WBC 19.5 10x3/uL (4.8-10.8)
[2020-05-19 12:29] LABS: INR 1.19 (0.85-1.17); PROTIME 15.1 SECONDS (11.6-15.0)
[2020-05-19 20:42] LABS: BASOPHILS 0.1 % (0-2); EOSINOPHILS 0.2 % (0-7); HEMATOCRIT 21.6 % (42.0-54.0); IMMATURE GRANULOCYTES 1.2 % (0-5); LYMPHOCYTES 7.9 % (15-50); MCH 27.8 pg (26.0-34.0); MCHC 31.5 g/dL (31.0-37.0); MCV 88.2 fL (80.0-100.0); MEAN PLATELET VOLUME 8.8 fL (7.4-10.4); MONOCYTES 6.6 % (2-11); PLATELET COUNT 359 10x3/uL (130-400); RBC 2.45 10x6/uL (4.20-6.10); RDW 16.8 % (11.5-14.5); WBC 16.9 10x3/uL (4.8-10.8)
[2020-05-19 20:50] LABS: HEMOGLOBIN 6.8 g/dL (13.5-17.5)
[2020-05-20] VITALS (16 sets, daily range): BP systolic 122–144; BP diastolic 68–90
[2020-05-20 06:11] LABS: PROTEIN C - ANTIGEN 94 % (60-150); PROTEIN C - FUNCTIONAL 104 % (73-180)
--- NOTE | 2020-05-20 10:05 | NUR ---
Nutrition follow-up: POD 2 priscilla haro Pt sleeping with NC O2; breakfast at bedside Labs reviewed Wt: 232# Out to floor today RDN following.
[2020-05-20 11:00] LABS: BASOPHILS 0.1 % (0-2); HEMOGLOBIN 8.8 g/dL (13.5-17.5); IMMATURE GRANULOCYTES 1.9 % (0-5); LYMPHOCYTES 7.8 % (15-50); MCH 28.2 pg (26.0-34.0); MCHC 32.2 g/dL (31.0-37.0); MCV 87.5 fL (80.0-100.0); MONOCYTES 5.4 % (2-11); NEUTROPHILS 83.8 % (40-80); PLATELET COUNT 404 10x3/uL (130-400); RBC 3.12 10x6/uL (4.20-6.10); RDW 16.3 % (11.5-14.5); WBC 15.7 10x3/uL (4.8-10.8)
[2020-05-20 11:01] LABS: HEMATOCRIT 27.3 % (42.0-54.0)
[2020-05-20 11:41] LABS: ALBUMIN 1.9 g/dL (3.4-5.0); ALKALINE PHOSPHATASE 104 U/L (30-120); ALT (SGPT) 47 U/L (10-68); BILIRUBIN - TOTAL 0.36 mg/dL (0.2-1.3); CALC OSMOLALITY 276 mosm/kg (275-300); CALCIUM 8.1 mg/dL (8.5-10.1); CHLORIDE - SERUM 107 mmol/L (98-107); CREATININE - SERUM 0.7 mg/dL (0.6-1.3); GLUCOSE 100 mg/dL (74-106); MAGNESIUM - SERUM 1.8 mg/dL (1.8-2.4); PHOSPHOROUS 2.2 mg/dL (2.5-4.9); POTASSIUM - SERUM 3.7 mmol/L (3.5-5.1); PROTEIN - SERUM 5.9 g/dL (6.4-8.2); SODIUM 140 mmol/L (136-145); UREA NITROGEN 8 mg/dL (7-18); eGFR NON AFRICAN AMERICAN > 90 mL/min (90-120)
[2020-05-20 18:33] LABS: BASOPHILS 0.1 % (0-2); EOSINOPHILS 0.7 % (0-7); HEMATOCRIT 26.6 % (42.0-54.0); HEMOGLOBIN 8.5 g/dL (13.5-17.5); LYMPHOCYTES 10.6 % (15-50); MCV 87.5 fL (80.0-100.0); MEAN PLATELET VOLUME 8.8 fL (7.4-10.4); MONOCYTES 5.4 % (2-11); NEUTROPHILS 81.2 % (40-80); PLATELET COUNT 371 10x3/uL (130-400); RBC 3.04 10x6/uL (4.20-6.10); RDW 16.4 % (11.5-14.5); WBC 15.1 10x3/uL (4.8-10.8)
--- NOTE | 2020-05-21 01:20 | NUR ---
I have reviewed this patient and I concur with the Shift Assessment completed by the Licensed Practical Nurse today this shift.
[2020-05-21 03:08] LABS: FACTOR II DNA ANALYSIS Negative (())
[2020-05-21 05:45] LABS: BASOPHILS 0.1 % (0-2); EOSINOPHILS 1.2 % (0-7); HEMATOCRIT 28.1 % (42.0-54.0); IMMATURE GRANULOCYTES 1.6 % (0-5); LYMPHOCYTES 10.2 % (15-50); MCV 87.3 fL (80.0-100.0); MONOCYTES 5.8 % (2-11); NEUTROPHILS 81.1 % (40-80); PLATELET COUNT 420 10x3/uL (130-400); RBC 3.22 10x6/uL (4.20-6.10); RDW 16.5 % (11.5-14.5); WBC 14.7 10x3/uL (4.8-10.8)
[2020-05-21 05:57] VITALS: BP 114/68
[2020-05-21 06:13] LABS: CALC OSMOLALITY 274 mosm/kg (275-300); CALCIUM 8.3 mg/dL (8.5-10.1); CARBON DIOXIDE 26.6 mmol/L (21.0-32.0); CHLORIDE - SERUM 105 mmol/L (98-107); CREATININE - SERUM 0.6 mg/dL (0.6-1.3); GLUCOSE 86 mg/dL (74-106); MAGNESIUM - SERUM 1.8 mg/dL (1.8-2.4); PHOSPHOROUS 2.7 mg/dL (2.5-4.9); POTASSIUM - SERUM 3.4 mmol/L (3.5-5.1); SODIUM 139 mmol/L (136-145); UREA NITROGEN 7 mg/dL (7-18); eGFR NON AFRICAN AMERICAN > 90 mL/min (90-120)
--- NOTE | 2020-05-21 07:54 | NUR ---
RESTING IN BED WITH EYES CLOSED. RESPIRATIONS EVEN AND UNLABORED. NO S/S OF ACUTE DISTRESS NOTED. POD #3 LAP BERNADETTE, DRESSING TO MIDLINE AND BANDAID TO 2 LAP SITES ON ABDOMEN. BART DRAIN TO MIDLINE. BEDFAST. TINOCO CATHETER PRESENT. ON TELEMETRY 98 SR. ON 1L O2, NC. LEFT SUBCLAVIAN, NS INFUSING @ 125ML/HR. SITE PATENT WITHOUT REDNESS OR SWELLING. POTASSIUM 3.4 AND MAGNESIUM 1.8 THIS AM, WILL FOLLOW ELECTROLYTE PROTOCOL. CALL LIGHT IN REACH. WILL CONTINUE TO MONITOR.
[2020-05-21 09:27] VITALS: BP 150/82
--- NOTE | 2020-05-21 15:53 | NUR ---
I have reviewed this patient and I concur with the Shift Assessment completed by the Licensed Practical Nurse today this shift.
[2020-05-21 18:06] VITALS: BP 143/80
[2020-05-21 21:18] VITALS: BP 139/73
[2020-05-22 01:23] VITALS: BP 128/75
[2020-05-22 05:08] VITALS: BP 144/70
[2020-05-22 07:02] LABS: BASOPHILS 0.2 % (0-2); HEMATOCRIT 28.3 % (42.0-54.0); HEMOGLOBIN 9.1 g/dL (13.5-17.5); IMMATURE GRANULOCYTES 1.1 % (0-5); LYMPHOCYTES 11.8 % (15-50); MCH 28.3 pg (26.0-34.0); MCHC 32.2 g/dL (31.0-37.0); MCV 88.2 fL (80.0-100.0); MEAN PLATELET VOLUME 9.1 fL (7.4-10.4); MONOCYTES 6.3 % (2-11); NEUTROPHILS 79.6 % (40-80); PLATELET COUNT 471 10x3/uL (130-400); RBC 3.21 10x6/uL (4.20-6.10); RDW 16.6 % (11.5-14.5); WBC 12.2 10x3/uL (4.8-10.8)
[2020-05-22 07:18] LABS: CALC OSMOLALITY 275 mosm/kg (275-300); CALCIUM 8.5 mg/dL (8.5-10.1); CHLORIDE - SERUM 105 mmol/L (98-107); CREATININE - SERUM 0.7 mg/dL (0.6-1.3); GLUCOSE 90 mg/dL (74-106); PHOSPHOROUS 3.4 mg/dL (2.5-4.9); POTASSIUM - SERUM 3.4 mmol/L (3.5-5.1); SODIUM 140 mmol/L (136-145); UREA NITROGEN 5 mg/dL (7-18); eGFR NON AFRICAN AMERICAN > 90 mL/min (90-120)
[2020-05-22 08:22] VITALS: BP 136/77
[2020-05-22 12:07] VITALS: BP 146/83
[2020-05-22 17:48] VITALS: BP 107/61
[2020-05-22 18:08] LABS: BASOPHILS 0.1 % (0-2); EOSINOPHILS 0.5 % (0-7); HEMATOCRIT 28.9 % (42.0-54.0); HEMOGLOBIN 9.3 g/dL (13.5-17.5); IMMATURE GRANULOCYTES 0.8 % (0-5); LYMPHOCYTES 10.2 % (15-50); MCH 28.1 pg (26.0-34.0); MCHC 32.2 g/dL (31.0-37.0); MCV 87.3 fL (80.0-100.0); MEAN PLATELET VOLUME 8.8 fL (7.4-10.4); MONOCYTES 4.8 % (2-11); NEUTROPHILS 83.6 % (40-80); PLATELET COUNT 460 10x3/uL (130-400); RBC 3.31 10x6/uL (4.20-6.10); RDW 16.5 % (11.5-14.5); WBC 12.8 10x3/uL (4.8-10.8)
[2020-05-22 21:48] VITALS: BP 113/52
[2020-05-23 01:34] VITALS: BP 117/70
--- NOTE | 2020-05-23 04:00 | NUR ---
BART DRAIN DC'D PER ORDER. PATIENT TOLERATED WELL. CPOC.
[2020-05-23 05:13] VITALS: BP 142/72
[2020-05-23 07:40] LABS: BASOPHILS 0.2 % (0-2); EOSINOPHILS 0.8 % (0-7); HEMATOCRIT 26.4 % (42.0-54.0); HEMOGLOBIN 8.5 g/dL (13.5-17.5); IMMATURE GRANULOCYTES 0.5 % (0-5); LYMPHOCYTES 7.7 % (15-50); MCH 28.4 pg (26.0-34.0); MCHC 32.2 g/dL (31.0-37.0); MCV 88.3 fL (80.0-100.0); MEAN PLATELET VOLUME 8.9 fL (7.4-10.4); MONOCYTES 6.1 % (2-11); NEUTROPHILS 84.7 % (40-80); PLATELET COUNT 495 10x3/uL (130-400); RBC 2.99 10x6/uL (4.20-6.10); RDW 16.8 % (11.5-14.5); WBC 12.5 10x3/uL (4.8-10.8)
[2020-05-23 07:43] LABS: CALC OSMOLALITY 276 mosm/kg (275-300); CALCIUM 8.3 mg/dL (8.5-10.1); CARBON DIOXIDE 27.1 mmol/L (21.0-32.0); CHLORIDE - SERUM 105 mmol/L (98-107); CREATININE - SERUM 0.6 mg/dL (0.6-1.3); GLUCOSE 124 mg/dL (74-106); MAGNESIUM - SERUM 1.9 mg/dL (1.8-2.4); PHOSPHOROUS 3.3 mg/dL (2.5-4.9); POTASSIUM - SERUM 3.8 mmol/L (3.5-5.1); SODIUM 139 mmol/L (136-145); eGFR NON AFRICAN AMERICAN > 90 mL/min (90-120)
[2020-05-23 07:44] LABS: UREA NITROGEN 7 mg/dL (7-18)
[2020-05-23 07:59] VITALS: BP 125/63
[2020-05-23 11:49] VITALS: BP 140/74
--- NOTE | 2020-05-23 15:09 | NUR ---
OT NOTE: PT COMPLETED FACE HYGIENE WITH SETUP. PT COMPLETED SITTING BALANCE WITH CGA. PT COMPLETED SIT TO STAND WITH MIN A/CGA. [phone] CLAUDIO KRUEGER COTA
[2020-05-23 16:49] VITALS: BP 130/62
[2020-05-23 20:00] VITALS: BP 144/72
--- NOTE | 2020-05-23 21:00 | NUR ---
PATIENT IS ALERT WITH CONFUSION PRESENT. O2 AT 2.5 LETERS VIA N/C , PRN. IV RIGHT IJ IN PLACE, RIGHT FOREARM IN PLACE AND PATEN WITH NS AT 125 ML/HR. LAP SITES X 3 WITH NO S/S OF INFECTION NOTED AT THIS TIME NO REDNESS NOTED. DRINKS LOTES OF WATER FROM HIS CUP. 2 PERSON ASSIST FOR TRANSFERS. CALL LIGHT AND WATER IN REACCH.
[2020-05-23 21:26] LABS: BASOPHILS 0.1 % (0-2); EOSINOPHILS 0.9 % (0-7); HEMATOCRIT 27.5 % (42.0-54.0); HEMOGLOBIN 8.6 g/dL (13.5-17.5); IMMATURE GRANULOCYTES 0.5 % (0-5); LYMPHOCYTES 10.5 % (15-50); MCH 27.8 pg (26.0-34.0); MCHC 31.3 g/dL (31.0-37.0); MEAN PLATELET VOLUME 8.9 fL (7.4-10.4); MONOCYTES 6.6 % (2-11); NEUTROPHILS 81.4 % (40-80); PLATELET COUNT 558 10x3/uL (130-400); RBC 3.09 10x6/uL (4.20-6.10); RDW 16.6 % (11.5-14.5)
[2020-05-24 04:00] VITALS: BP 121/65
[2020-05-24 06:47] LABS: ALBUMIN 2.1 g/dL (3.4-5.0); ALKALINE PHOSPHATASE 95 U/L (30-120); ALT (SGPT) 22 U/L (10-68); CALC OSMOLALITY 275 mosm/kg (275-300); CALCIUM 8.5 mg/dL (8.5-10.1); CARBON DIOXIDE 29.7 mmol/L (21.0-32.0); CHLORIDE - SERUM 104 mmol/L (98-107); CREATININE - SERUM 0.7 mg/dL (0.6-1.3); GLUCOSE 98 mg/dL (74-106); POTASSIUM - SERUM 3.5 mmol/L (3.5-5.1); PROTEIN - SERUM 6.5 g/dL (6.4-8.2); SODIUM 139 mmol/L (136-145); UREA NITROGEN 7 mg/dL (7-18); eGFR NON AFRICAN AMERICAN > 90 mL/min (90-120)
[2020-05-24 06:59] LABS: BASOPHILS 0.1 % (0-2); EOSINOPHILS 1.1 % (0-7); HEMATOCRIT 27.8 % (42.0-54.0); HEMOGLOBIN 8.7 g/dL (13.5-17.5); IMMATURE GRANULOCYTES 0.3 % (0-5); LYMPHOCYTES 11.8 % (15-50); MCHC 31.3 g/dL (31.0-37.0); MCV 89.4 fL (80.0-100.0); MONOCYTES 6.8 % (2-11); NEUTROPHILS 79.9 % (40-80); PLATELET COUNT 590 10x3/uL (130-400); RBC 3.11 10x6/uL (4.20-6.10); RDW 16.5 % (11.5-14.5); WBC 9.7 10x3/uL (4.8-10.8)
[2020-05-24 08:51] VITALS: BP 130/64
[2020-05-24 11:51] VITALS: BP 137/73
--- NOTE | 2020-05-24 12:29 | MORECARE ---
CASE MANAGEMENT DISCHARGE SUMMARY PATIENT: ABRIL CALLAHAN UNIT: [id number] ADM DATE: 05/11/20 AGE: 69 : 52 SEX: M ROOM/BED: D.2234 AUTHOR: TORI GARCIA PHYSICIAN: REFERRING PHYSICIAN: NICOLA SALAZAR MD DATE OF SERVICE: 05/24/20 Discharge Plan Patient Name: ABRIL CALLAHAN Facility: [facility]:[place] : 1950 Planned Disposition: Home Anticipated Discharge Date: Discharge Date: Expected LOS: Initial Reviewer: [email or web address] Initial Review Date: 05/17/2020 Generated: 05/24/20 1:29 pm Comments DCP- Discharge Planning Updated by [id number]: Perri Nuñez on 05/24/20 11:[address] Patient Name: ABRIL CALLAHAN Admission Status: ER Accout number: [id number] Admission Date: 05-11-2020 : 1950 Admission Diagnosis:SEPSIS, UNSPECIFIED ORGANISM Attending: NICOLA SALAZAR Current LOS: 13 Anticipated DC Date: Planned Disposition: Home Primary Insurance: [employer] Discharge Planning Comments: CM SPOKE WITH PK SERRATO AT [phone] AND [facility]ED HER UPDATED CLINICALS ON THIS PATIENT. I TALKED WITH HER ABOUT PATIENT'S NEED FOR PORTABLE 02 AND POSSIBLE IPRH AT TIME OF DC. SHE IS FAXING THE DOCUMENTS TO [facility] FIELD ARTILLERY CANNONEER PHONE [phone] AND PIERRE KOWALSKI FIELD ARTILLERY CANNONEER PHONE NUMBER [phone] WHICH ARE THE TRAINING AND DEVELOPMENT HEAD THAT WILL TAKE CARE OF HIS 02 NEEDS AND NEED FOR IPRH. I TALKED WITH PATIENT AND HE PLANS TO DC TO HOME WHEN STABLE, STATES HE DOESN'T WANT REHAB. I WILL TALK MORE WITH HIM WHEN HIS IS HERE ALSO. I WILL FOLLOW UP WITH [facility] TOMORROW TO CHECK THEIR DECISION ON IF THEY WILL APPROVE REHAB. CM TO FOLLOW AND ASSIST NEEDED. Telemarketer Supervisor: Perri Nuñez DCP- Discharge Planning Updated by [id number]: Michelle Samayoa on 05/17/20 12:[address] CM noted spouse in room and I spoke with spouse concerning discharge needs. Spouse states the oxygen they [facility] that [facility]. She states he doesn't use it and it probably hasn't been turned on in a year. She states he does not have portable oxygen. He will need a walk test prior to discharge to assess for home oxygen needs. She declines other needs at this time. CM will continue to follow and assist with discharge planning/needs. DCP- Discharge Planning Updated by [id number]: Michelle Danita on 05/17/20 7:[address] Patient Name: ABRIL CALLAHAN Admission Status: ER Accout number: [id number] Admission Date: 05-11-2020 : 1950 Admission Diagnosis:SEPSIS, UNSPECIFIED ORGANISM Attending: NICOLA SALAZAR Current LOS: 6 Anticipated DC Date: Planned Disposition: Home Primary Insurance: [employer] Discharge Planning Comments: CM met with patient to complete initial dc planning assessment. CM educated patient on the CM role and verbal consent given by patient to complete assessment. Patient lives at home with his spouse. At discharge patient plans to return and feels this is a safe discharge. CM discussed availability of home health, rehab services, and medical equipment. Patient is unsure of needs at this time. [facility]. He has oxygen, but does not have portable oxygen per patient I called community managed care analyst, Pk Serrato, and faxed clinical. CM will continue to follow and will assist as needed with dc plans/needs. Pk Serrato ([place] community Care) Phone - [phone] Fax - [phone] Telemarketer Supervisor: Michelle Samayoa DCP- Discharge Planning Updated by [email or web address]: Dina De La O on 05/16/20 10:[address] CM received call from Pk Serrato from the [place] at [phone]. CM provided clinical update. Dina De La O DCPIA - Discharge Planning Initial Assessment Updated by [email or web address]: Michelle Samayoa on 05/17/20 8:41 am * Is the patient Alert and Oriented? Yes * How many steps to enter\exit or inside your home? 2/0 * [facility] [place] [facility] * Preadmission Environment Home with Family * ADLs Partial Dependent * Partial ADLs (Assistance needed) Ambulation Medication Management * Equipment Crutch Hospital Bed Nebulizer Other Oxygen * Other Equipment MALAYSIAN CRUTCH * List name and contact numbers for known caregivers / representatives who currently or will assist patient after discharge: Gayle Solis - spouse - [phone] * Verbal permission to speak to the caregivers and representatives has been obtained from the patient. Yes * [facility] resources [facility] utilized [facility] * Additional services required to return to the preadmission environment? Yes * Can the patient safely return to the preadmission environment? Yes * Has this patient been hospitalized within the prior 30 days at any hospital? No Last DP export: 05/17/20 1:05 p Patient Name: ABRIL CALLAHAN Page 76061 at 1229 All edits/amendments must be made on the electronic document DICTATION DATE: 05/24/20 122 HANDICRAFTS TEACHER: LESLIE 05/24/20 1229 RPT#: [id number] DC DATE: STATUS: ADM IN [facility] [address] [place] [address] END OF REPORT
--- NOTE | 2020-05-24 15:49 | NUR ---
OT NOTE: PT REFUSED THERAPY DUE TO PAIN.. STATES THAT HE HAS BEEN ON PAIN MEDS FOR OVER 20 YRS AND NOW HES NOT RECEIVING ANYTHING. JODIE GATICA, OTR/L
[2020-05-24 18:09] VITALS: BP 136/88
[2020-05-24 20:00] VITALS: BP 126/77
--- NOTE | 2020-05-24 20:00 | NUR ---
PT SITTING UP IN BED WITHOUT DISTRESS, PT ORIENTED TO SELF AND PLACE. SOME CONFUSION TO TIME AND SITUATION. PT HAS STATED SEVERAL TIMES HIS PAIN MEDS ARE NOT RIGHT, THAT HE TAKES "16MG OF DILAUDID 5 TIMES A DAY AT HOME" AND THAT WE ARE GIVING HIM NOTHING COMPARED TO THAT. EXPLAINED TO PT MULTIPLE TIMES THAT WE ARE GIVING HIM THE SAME PAIN MEDS THE PAIN CLINIC PRESCRIBED TO HIM AND THAT HE HAS FILLED THAT SCRIPT PER OUR PHARMACY RECORDS. PT CONTINUES TO STATE HE TAKES THE DILAUDID AT HOME AND SAYS HE SHOULD JUST GO HOME WHERE HE CAN TAKE MORE MEDS SINCE "YOU WONT GIVE ME ANY" WHEN OFFERING PT THE NORCO 5 HE ASKS ME TO "BRING THE WHOLE BOTTLE" AND WHEN I STATE I CAN ONLY GIVEN HIM WHAT THE DR ORDERS HE STATES "OK THEN HALF THE BOTTLE, OR JUST 4 OR 5 WILL WORK" GAVE PT NORCO ORDERED. DENIES OTHER NEEDS AT THIS TIME BESIDES MORE PAIN MEDS. CL IN REACH, WILL CTM
[2020-05-25 04:00] VITALS: BP 144/86
--- NOTE | 2020-05-25 07:15 | NUR ---
RECEIVED BEDSIDE REPORT. PT SITTING UP IN CHAIR, A & O X2, DISORIENTATED TO TIME AND SITUATION. CVL TO LEFT JUG, PATENT AND INFUSING, NO REDNESS OR SWELLING. PIV TO RIGHT FOREARM, PATENT AND INFUSING, NO REDNESS OR SWELLING. SCDS OFF, AT BEDSIDE. ABD DISTENDED, LAP SITES X3, NO SWELLING OR DISCHARGE. EDUCATED PT ON CL AND NEEDS, VERBALIZED UNDERSTANDING. CHAIR ALARM ON, CL IN REACH. WILL CONTINUE TO MONITOR.
[2020-05-25 07:51] LABS: ALBUMIN 2.1 g/dL (3.4-5.0); ALKALINE PHOSPHATASE 97 U/L (30-120); ALT (SGPT) 22 U/L (10-68); BASOPHILS 0.1 % (0-2); BILIRUBIN - TOTAL 0.34 mg/dL (0.2-1.3); CALC OSMOLALITY 272 mosm/kg (275-300); CALCIUM 8.6 mg/dL (8.5-10.1); CARBON DIOXIDE 27.1 mmol/L (21.0-32.0); CHLORIDE - SERUM 102 mmol/L (98-107); EOSINOPHILS 0.9 % (0-7); GLUCOSE 121 mg/dL (74-106); HEMATOCRIT 28.3 % (42.0-54.0); HEMOGLOBIN 8.8 g/dL (13.5-17.5); IMMATURE GRANULOCYTES 0.3 % (0-5); LYMPHOCYTES 12.7 % (15-50); MCH 27.7 pg (26.0-34.0); MCHC 31.1 g/dL (31.0-37.0); MEAN PLATELET VOLUME 8.8 fL (7.4-10.4); MONOCYTES 8.8 % (2-11); NEUTROPHILS 77.2 % (40-80); PLATELET COUNT 608 10x3/uL (130-400); POTASSIUM - SERUM 3.3 mmol/L (3.5-5.1); PROTEIN - SERUM 6.8 g/dL (6.4-8.2); RBC 3.18 10x6/uL (4.20-6.10); RDW 16.1 % (11.5-14.5); SODIUM 137 mmol/L (136-145); UREA NITROGEN 7 mg/dL (7-18); WBC 9.3 10x3/uL (4.8-10.8)
[2020-05-25 07:55] LABS: CREATININE - SERUM 0.5 mg/dL (0.6-1.3); eGFR NON AFRICAN AMERICAN > 90 mL/min (90-120)
[2020-05-25 08:33] VITALS: BP 128/74; BP 149/79
--- NOTE | 2020-05-25 09:00 | NUR ---
PT C/O PAIN 06/04, PROVIDED MEDS PER ORDER. CHAIR ALARM ON, CL IN REACH.
[2020-05-25 11:38] VITALS: BP 132/46; BP 132/76; BP 140/86
--- NOTE | 2020-05-25 12:53 | MORECARE ---
CASE MANAGEMENT DISCHARGE SUMMARY PATIENT: ABRIL CALLAHAN UNIT: [id number] ADM DATE: 05/11/20 AGE: 69 : 52 SEX: M ROOM/BED: D.2234 AUTHOR: TORI GARCIA PHYSICIAN: REFERRING PHYSICIAN: NICOLA SALAZAR MD DATE OF SERVICE: 05/25/20 Discharge Plan Patient Name: ABRIL CALLAHAN Facility: [facility]:[place] : 1950 Planned Disposition: Home Anticipated Discharge Date: Discharge Date: Expected LOS: Initial Reviewer: [email or web address] Initial Review Date: 05/17/2020 Generated: 05/25/20 1:52 pm Comments DCP- Discharge Planning Updated by [id number]: Perri Nuñez on 05/25/20 11:[address] Patient Name: ABRIL CALLAHAN Admission Status: ER Accout number: [id number] Admission Date: 05-11-2020 : 1950 Admission Diagnosis:SEPSIS, UNSPECIFIED ORGANISM Attending: NICOLA SALAZAR Current LOS: 14 Anticipated DC Date: Planned Disposition: Home Primary Insurance: [employer] Discharge Planning Comments: CM SPOKE WITH PATIENT'S TODAY AND SHE STATES PLAN IS TO TAKE HIM TO HOME. HE IS WALKING WITH PT AND USING OXYGEN. I CALLED [facility] WITH THE [place] TO GET PORTABLE OXYGEN SET UP. I AM TO CALL HIM BACK AT [phone] WITH POTENTIAL DC DATE TO GET OXYGEN DELIVERED. Developer Prover Upholstering: Perri Nuñez DCP- Discharge Planning Updated by [id number]: Perri Nuñez on 05/24/20 11:[address] Patient Name: ABRIL CALLAHAN Admission Status: ER Accout number: [id number] Admission Date: 05-11-2020 : 1950 Admission Diagnosis:SEPSIS, UNSPECIFIED ORGANISM Attending: NICOLA SALAZAR Current LOS: 13 Anticipated DC Date: Planned Disposition: Home Primary Insurance: [employer] Discharge Planning Comments: SUSI SPOKE WITH PK SERRATO AT [phone] WITH THE [place] AND FAXED HER UPDATED CLINICALS ON THIS PATIENT. I TALKED WITH HER ABOUT PATIENT'S NEED FOR PORTABLE 02 AND POSSIBLE IPRH AT TIME OF DC. SHE IS FAXING THE DOCUMENTS TO [facility] APN PHONE [phone] AND PIERRE KOWALSKI QUESTIONED DOCUMENTS EXAMINER PHONE NUMBER [phone] WHICH ARE THE PREDATORY HUNTER THAT WILL TAKE CARE OF HIS 02 NEEDS AND [facility]. I TALKED WITH PATIENT AND HE PLANS TO DC TO HOME WHEN STABLE, STATES HE DOESN'T WANT REHAB. I WILL TALK MORE WITH HIM WHEN HIS IS HERE ALSO. I WILL FOLLOW UP WITH [facility] TOMORROW TO CHECK THEIR DECISION ON IF THEY WILL APPROVE REHAB. CM TO FOLLOW AND ASSIST NEEDED. Developer Prover Upholstering: Perri Nuñez DCP- Discharge Planning Updated by [email or web address]: Michelle Samayoa on 05/17/20 12:[address] CM noted spouse in room and I spoke with spouse concerning discharge needs. Spouse states the oxygen they have is [facility] the [facility] that they got 18 years [facility]. She states he doesn't use it and it probably hasn't been turned on in a year. She states he does not have portable oxygen. He will need a walk test prior to discharge to assess for home oxygen needs. She declines other needs at this time. CM will continue to follow and assist with discharge planning/needs. DCP- Discharge Planning Updated by [email or web address]: Michelle Samayoa on 05/17/20 7:[address] Patient Name: ABRIL CALLAHAN Admission Status: ER Accout number: [id number] Admission Date: 05-11-2020 : 1950 Admission Diagnosis:SEPSIS, UNSPECIFIED ORGANISM Attending: NICOLA SALAZAR Current LOS: 6 Anticipated DC Date: Planned Disposition: Home Primary Insurance: [employer] Discharge Planning Comments: CM met with patient to complete initial dc planning assessment. CM educated patient on the CM role and verbal consent given by patient to complete assessment. Patient lives at home with his spouse. At discharge patient plans to return and feels this is a safe discharge. CM discussed availability of home health, rehab services, and medical equipment. Patient is unsure of needs at this time. [facility]. He has oxygen, but does not have portable oxygen per patient I called community group care worker, Pk Serrato, and faxed clinical. CM will continue to follow and will assist as needed with dc plans/needs. Pk Serrato ([place] community Care) Phone - [phone] Fax - [phone] Developer Prover Upholstering: Michelle Samayoa DCP- Discharge Planning Updated by [email or web address]: Dina De La O on 05/16/20 10:[address] CM received call from Pk Serrato from the [place] at [phone]. CM provided clinical update. Dina De La O DCPIA - Discharge Planning Initial Assessment Updated by [email or web address]: Michelle Samayoa on 05/17/20 8:41 am * Is the patient Alert and Oriented? Yes * How many steps to enter\exit or inside your home? 2/0 * [facility] [place] [facility] * Preadmission Environment Home with Family * ADLs Partial Dependent * Partial ADLs (Assistance needed) Ambulation Medication Management * Equipment Crutch [facility] Bed Nebulizer Other Oxygen * Other Equipment JENKS CRUTCH * List name and contact numbers for known caregivers / representatives who currently or will assist patient after discharge: Gayle Solis - spouse - [phone] * Verbal permission to speak to the caregivers and representatives has been obtained from the patient. Yes * Community resources currently utilized [place] [facility] * Additional services required to return to the preadmission environment? Yes * Can the patient safely return to the preadmission environment? Yes * Has this patient been hospitalized within the prior 30 days at any hospital? No Last DP export: 05/24/20 11:29 a Patient Name: ABRIL CALLAHAN Page 06830 at 1253 All edits/amendments must be made on the electronic document DICTATION DATE: 05/25/20 1252 SALES REPRESENTATIVE [facility] [facility]: LESLIE 05/25/20 1252 RPT#: [id number] DC DATE: STATUS: ADM IN [facility] [address] [place] [address] END OF REPORT
--- NOTE | 2020-05-25 13:00 | NUR ---
PT C/O PAIN 05/05, PROVIDED MEDS PER ORDER. CHAIR ALARM ON, CL IN REACH.
--- NOTE | 2020-05-25 13:17 | NUR ---
OT NOTE: PT FEELING SOME BETTER TODAY. AT BEDSIDE AND ENCOURAGED PT TO PARITICIPATE IN THERAPY. PERFORMED SUPINE TO SIT WITH MOD ASSIST; SIT TO STAND WITH MIN ASSIST; STANDING TOLERANCE X 4-5 MIN WHILE GETTING ASSIST FOR MED EQUIP MGMT. IN ROOM AMB WITH MIN ASSIST; SIMPLE GROOMING AND FEEDING TASKS WITH SET UP; MIN ASSIST TO GRAY SOCKS WHILE SITTING ON EOB AND CROSSING ONE LEG OVER THE OTHER. AMB INTO HALLWAY TO IMPROVE FUNCTIONAL ENDURANCE. PT ABLE TO AMB APPROX 100 FT WITH MIN ASSIST FOR BALANCE AND EXT ASSIST FOR EQUIP MGMT INCLUDING 02 AND IV POLE. TRANSFERRED BACK TO CHAIR WITH MIN ASSIST JODIE GATICA, OTR/L [phone]
[2020-05-25] MEDS ORDERED: TESSALON PERLE100 MG PO (13:30)
[2020-05-25] MEDS ORDERED: MUCINEX600 MG PO (13:30)
[2020-05-25] MEDS ORDERED: SINGULAIR10 MG PO (13:30)
[2020-05-25] MEDS ORDERED: FLUTICASONE PRO16 GM NASAL (13:30)
[2020-05-25] MEDS ORDERED: COMBIVENT RESPIM4 GM INH ×2 (14:05→14:21)
--- NOTE | 2020-05-25 14:58 | NUR ---
OT NOTE: PT COMPLETED SUPINE TO SIT WITH MIN A X2. PT COMPLETED SIT TO STAND WITH CGA. PT COMPLETED ADL MOB WITH RW WITH CGA. PT REQUIRED TOTAL A WITH EQUIPMENT MANAGEMENT. PT EXHIBITED A DECREASE IN C/O PAIN. PT EXHIBITED INCREASED ACTIVITY TOLERANCE. PT COMPLETED GOWN GRAY WITH MOD A. [phone] THANK YOU,TALAT CAMPOS
[2020-05-25 16:37] VITALS: BP 115/67
[2020-05-25 20:00] VITALS: BP 103/70
--- NOTE | 2020-05-25 21:00 | NUR ---
PT SITTING UP IN BED WITHOUT DISTRESS, AT BEDSIDE. PT PORTABLE O2 WAS NOT DELIVERED FOR PT TO DC. STATES SHE NEEDS TO GET HOME. NOTIFIED GARNETT ROOM WORKER PT WOULD NOT BE LEAVING. PT STATES PAIN 10/10 AT THIS TIME. GAVE NORCO ORDERED AND HS MEDS. DENIES OTHER NEEDS. CL IN REACH, WILL CTM
[2020-05-26 04:00] VITALS: BP 141/70
[2020-05-26 06:28] LABS: BASOPHILS 0.3 % (0-2); EOSINOPHILS 1.1 % (0-7); HEMATOCRIT 27.2 % (42.0-54.0); HEMOGLOBIN 8.5 g/dL (13.5-17.5); IMMATURE GRANULOCYTES 0.4 % (0-5); LYMPHOCYTES 15.8 % (15-50); MCH 27.7 pg (26.0-34.0); MCHC 31.3 g/dL (31.0-37.0); MCV 88.6 fL (80.0-100.0); MEAN PLATELET VOLUME 8.7 fL (7.4-10.4); MONOCYTES 11.6 % (2-11); NEUTROPHILS 70.8 % (40-80); PLATELET COUNT 584 10x3/uL (130-400); RBC 3.07 10x6/uL (4.20-6.10); RDW 15.8 % (11.5-14.5); WBC 7.3 10x3/uL (4.8-10.8)
--- NOTE | 2020-05-26 06:45 | NUR ---
RESTING IN BED WITH EYES CLOSED. RESPIRATIONS EVEN AND UNLABORED. NO S/S OF ACUTE DISTRESS. AWAITING PORTABLE O2 TO DISCHARGE HOME. POD #8 LAP THA FLEMING SITES C/D/I. UP WITH ASSIST. ON 2L O2, NC. IV TO RIGHT FOREARM, SL AND RIGHT IJ, SL. SITES PATENT WITHOUT REDNESS OR SWELLING. CALL LIGHT IN REACH. WILL CONTINUE TO MONITOR.
[2020-05-26 06:46] LABS: ALBUMIN 2.1 g/dL (3.4-5.0); ALKALINE PHOSPHATASE 95 U/L (30-120); ALT (SGPT) 21 U/L (10-68); BILIRUBIN - TOTAL 0.33 mg/dL (0.2-1.3); CALC OSMOLALITY 270 mosm/kg (275-300); CALCIUM 8.6 mg/dL (8.5-10.1); CARBON DIOXIDE 28.1 mmol/L (21.0-32.0); CHLORIDE - SERUM 100 mmol/L (98-107); CREATININE - SERUM 0.7 mg/dL (0.6-1.3); GLUCOSE 106 mg/dL (74-106); POTASSIUM - SERUM 3.5 mmol/L (3.5-5.1); PROTEIN - SERUM 6.8 g/dL (6.4-8.2); SODIUM 136 mmol/L (136-145); UREA NITROGEN 9 mg/dL (7-18); eGFR NON AFRICAN AMERICAN > 90 mL/min (90-120)
[2020-05-26 08:07] VITALS: BP 148/71
--- NOTE | 2020-05-26 11:24 | NUR ---
STARTING INFUSION OF 1 UNIT OF PRBC. VITALS WNL. NO C/O PAIN. NO S/S OF ACUTE DISTRESS NOTED. DENIES ANY NEEDS AT THIS TIME. WILL CONTINUE TO MONITOR.
[2020-05-26 12:04] VITALS: BP 126/69
--- NOTE | 2020-05-26 13:03 | NUR ---
OT NOTE: PT DOING BETTER TODAY. ABLE TO GRAY GOWN AND SOCKS WITH SET UP. ABLE TO AMB GREATER THAN 200 FT WITH WALKER AND CGA. TRANSFERS WITH WALKER AND CGA. ENDURANCE IMPROVING. JODIE GATICA, OTR/L [phone]
--- NOTE | 2020-05-26 13:04 | NUR ---
PATIENT IN BED RESTING. AROUSES TO VOICE. DENIES PAIN OR NEEDS. BED LOW POSITION, CALL LIGHT IN REACH. FREE FROM SIGNS OF DISTRESS. WILL CONTINUE TO MONITOR.
--- NOTE | 2020-05-26 13:56 | NUR ---
INFUSION OF PRBC COMPLETED, 300ML INFUSED
--- NOTE | 2020-05-26 14:30 | NUR ---
LEFT IJ REMOVED AT THIS TIME. PATIENT TOLERATED WITH NO PAIN. CLEANED SITE WITH BETADINE AFTER REMOVAL. NO BLEEDING AT THIS TIME. DRESSING PLACED OVER SITE AND EXPLAINED NOT TO REMOVE FOR 24 HOURS. VERBALIZED UNDERSTANDING.
--- NOTE | 2020-05-26 15:03 | NUR ---
DISCHARGED HOME VIA WHEELCHAIR WITH ACCOMPANIED BY STAFF. DISCONTINUED IV CATHETER TIP INTACT. ERROL SANDOVAL RN DISCONTINUED RIGHT IJ WITH CATHETER TIP INTACT. WENT OVER DISCHARGE INSTRUCTIONS WITH PATIENT AND , VERBALIZED UNDERSTANDING. SENT PATIENT HOME WITH FULL O2 TANK. DENIES ANYTHING FURTHER.
--- NOTE | 2020-05-26 22:47 | NUR ---
OT NOTE: PT COMPLETED BUE AROM EXS TOLERATED . PT UB HYGIENE TASKS WITH SETUP. PT EXHIBITED BED MOB WITH SBA USING TRAP BAR. [phone] THANK YOU, TALAT CAMPOS
--- NOTE | 2020-05-27 09:21 | MORECARE ---
CASE MANAGEMENT DISCHARGE SUMMARY PATIENT: ABRIL CALLAHAN UNIT: [id number] ADM DATE: 05/11/20 AGE: 69 : 52 SEX: M ROOM/BED: D.2234 AUTHOR: TORI GARCIA PHYSICIAN: REFERRING PHYSICIAN: NICOLA SALAZAR MD DATE OF SERVICE: 05/27/20 Discharge Plan Patient Name: ABRIL CALLAHAN Facility: [facility]:[place] : 1950 Planned Disposition: Home Anticipated Discharge Date: Discharge Date: 05/26/2020 Expected LOS: Initial Reviewer: [email or web address] Initial Review Date: 05/17/2020 Generated: 05/27/20 10:20 am Comments DCP- Discharge Planning Updated by [id number]: Perri Nuñez on 05/25/20 11:[address] Patient Name: ABRIL CALLAHAN Admission Status: ER Accout number: [id number] Admission Date: 05-11-2020 : 1950 Admission Diagnosis:SEPSIS, UNSPECIFIED ORGANISM Attending: NICOLA SALAZAR Current LOS: 14 Anticipated DC Date: Planned Disposition: Home Primary Insurance: [employer] Discharge Planning Comments: CM SPOKE WITH PATIENT'S TODAY AND SHE STATES PLAN IS TO TAKE HIM TO HOME. HE IS WALKING WITH PT AND USING OXYGEN. I CALLED [facility] [place] TO GET [place]GEN SET UP. I AM TO CALL HIM BACK AT [phone] WITH POTENTIAL DC DATE TO GET OXYGEN DELIVERED. Merchandising Execution Manager: Perri Nuñez DCP- Discharge Planning Updated by [email or web address]: Perri Nuñez on 05/24/20 11:[address] Patient Name: ABRIL CALLAHAN Admission Status: ER Accout number: [id number] Admission Date: 05-11-2020 : 1950 Admission Diagnosis:SEPSIS, UNSPECIFIED ORGANISM Attending: NICOLA SALAZAR Current LOS: 13 Anticipated DC Date: Planned Disposition: Home Primary Insurance: [employer] Discharge Planning Comments: SUSI SPOKE WITH PK SERRATO AT [phone] WITH THE [place] AND FAXED HER UPDATED CLINICALS ON THIS PATIENT. I TALKED WITH HER ABOUT PATIENT'S NEED FOR PORTABLE 02 AND POSSIBLE IPRH AT TIME OF DC. SHE IS FAXING THE DOCUMENTS TO [facility] APN PHONE [phone] AND PIERRE KOWALSKI KILN DOOR BUILDER PHONE NUMBER [phone] WHICH ARE THE BRAZING FURNACE OPERATOR THAT WILL TAKE CARE OF HIS 02 NEEDS AND NEED FOR IPRH. I TALKED WITH PATIENT AND HE PLANS TO DC TO HOME WHEN STABLE, STATES HE DOESN'T WANT REHAB. I WILL TALK MORE WITH HIM WHEN HIS IS HERE ALSO. I WILL [facility] WITH [facility] TOM[facility] TO CHECK THEIR DECISION ON IF THEY WILL APPROVE REHAB. CM TO FOLLOW AND ASSIST NEEDED. Merchandising Execution Manager: Perri Nuñez DCP- Discharge Planning Updated by [id number]: Michelle Samayoa on 05/17/20 12:[address] CM noted spouse in room and I spoke with spouse concerning discharge needs. Spouse states the oxygen they have is [facility] the [facility] that they got 18 years [facility]. She states he doesn't use it and it probably hasn't been turned on in a year. She states he does not have portable oxygen. He will need a walk test prior to discharge to assess for home oxygen needs. She declines other needs at this time. CM will continue to follow and assist with discharge planning/needs. DCP- Discharge Planning Updated by [email or web address]: Michelle Samayoa on 05/17/20 7:[address] Patient Name: ABRIL CALLAHAN Admission Status: ER Accout number: [id number] Admission Date: 05-11-2020 : 1950 Admission Diagnosis:SEPSIS, UNSPECIFIED ORGANISM Attending: NICOLA SALAZAR Current LOS: 6 Anticipated DC Date: Planned Disposition: Home Primary Insurance: [employer] Discharge Planning Comments: CM met with patient to complete initial dc planning assessment. CM educated patient on the CM role and verbal consent given by patient to complete assessment. Patient lives at home with his spouse. At discharge patient plans to return and feels this is a safe discharge. CM discussed availability of home health, rehab services, and medical equipment. Patient is unsure of needs at this time. [facility]. He has oxygen, but does not have portable oxygen per patient I called community manager respiratory care, Pk Serrato, and faxed clinical. CM will continue to follow and will assist as needed with dc plans/needs. Pk Serrato ([place] community Care) Phone - [phone] Fax - [phone] Merchandising Execution Manager: Michelle Garciafuad DCP- Discharge Planning Updated by [email or web address]: Dina De La O on 05/16/20 10:[address] CM received call from Pk Serrato from the [place] at [phone]. CM provided clinical update. Dina De La O DCPIA - Discharge Planning Initial Assessment Updated by [id number]: Michelle Samayoa on 05/17/20 8:41 am * Is the patient Alert and Oriented? Yes * How many steps to enter\exit or inside your home? 2/0 * [facility] [place] [facility] [place] [facility] * Preadmission Environment Home with Family * ADLs Partial Dependent * Partial ADLs (Assistance needed) Ambulation Medication Management * Equipment Crutch Hospital Bed Nebulizer Other Oxygen * Other Equipment TONGAN CRUTCH * List name and contact numbers for known caregivers / representatives who currently or will assist patient after discharge: Gayle Solis - [facility] - [phone] * Verbal permission to speak to the caregivers and representatives has been obtained from the patient. Yes * Community resources currently utilized [place] [facility] * Additional services required to return to the preadmission environment? Yes * Can the patient safely return to the preadmission environment? Yes * Has this patient been hospitalized within the prior 30 days at any hospital? No Last DP export: 05/25/20 11:53 a Patient Name: ABRIL CALLAHAN Page 09923 at 0921 All edits/amendments must be made on the electronic document DICTATION DATE: 05/27/20919 ELECTROENCEPHALOGRAPHIC TECHNICIAN: LESLIE 05/27/20919 RPT#: [id number] DC DATE:05/26/20 STATUS: DIS IN [facility] [address] [place] [address] END OF REPORT
== END 2020-05-26 15:56 | disposition home or self-care (01) | DRG 853 ==
LOC: D.ER 13:11 → D.MS 22:58 → D.EDHOLD 22:58 → D.M2 22:58 → D.ICU 22:58 → D.M2 05-12 16:04 → D.ICU 05-18 22:43 → D.MS 05-20 18:27
PROVIDERS: Emergency Medicine; Family Medicine; Family Medicine Adult Medicine; Internal Medicine Hematology & Oncology; Internal Medicine Pulmonary Disease; Surgery; ADMIT Family Medicine; ATTEND Family Medicine
PROC: BF101ZZ Fluoroscopy of Bile Ducts using Low Osmolar Contrast (ICD-10-PCS; 2020-05-18)
PROC: 0FB03ZX Excision of Liver, Percutaneous Approach, Diagnostic (ICD-10-PCS; 2020-05-18)
PROC: 0FT44ZZ Resection of Gallbladder, Percutaneous Endoscopic Approach (ICD-10-PCS; principal; 2020-05-18 11:00)
DX: A41.9 Sepsis, unspecified organism (principal); J18.9 Pneumonia, unspecified organism; J96.01 Acute respiratory failure with hypoxia; J98.11 Atelectasis; D62 Acute posthemorrhagic anemia; A77.0 Spotted fever due to Rickettsia rickettsii; E87.6 Hypokalemia; E03.9 Hypothyroidism, unspecified; F03.90 Unspecified dementia, unspecified severity, without behavioral disturbance, psychotic disturbance, mood disturbance, and anxiety; G47.33 Obstructive sleep apnea (adult) (pediatric); E78.5 Hyperlipidemia, unspecified; G89.29 Other chronic pain; M54.9 Dorsalgia, unspecified; I12.9 Hypertensive chronic kidney disease with stage 1 through stage 4 chronic kidney disease, or unspecified chronic kidney disease; N18.9 Chronic kidney disease, unspecified; D63.1 Anemia in chronic kidney disease; K81.9 Cholecystitis, unspecified

== ENCOUNTER 2020-05-30 21:53 | Inpatient (IN) | payer OTHER ==
[~2020-05-30] VITALS: Ht 172.7 cm; Wt 88.0 kg
[~2020-05-30 21:53] MED LIST changes: +COMBIVENT RESPIM4 GM INH; +FLUTICASONE PRO16 GM NASAL; +MUCINEX600 MG PO; +SINGULAIR10 MG PO; +TESSALON PERLE100 MG PO
[2020-05-30 22:42] LABS: BASOPHILS 0.3 % (0-2); EOSINOPHILS 1.2 % (0-7); HEMATOCRIT 32.5 % (42.0-54.0); HEMOGLOBIN 10.5 g/dL (13.5-17.5); IMMATURE GRANULOCYTES 0.2 % (0-5); LYMPHOCYTES 25.2 % (15-50); MCH 28.4 pg (26.0-34.0); MCHC 32.3 g/dL (31.0-37.0); MCV 87.8 fL (80.0-100.0); MEAN PLATELET VOLUME 8.4 fL (7.4-10.4); MONOCYTES 10.3 % (2-11); NEUTROPHILS 62.8 % (40-80); PLATELET COUNT 475 10x3/uL (130-400); RDW 14.4 % (11.5-14.5); WBC 6.4 10x3/uL (4.8-10.8)
[2020-05-30 22:50] LABS: CALC OSMOLALITY 267 mosm/kg (275-300); CALCIUM 8.7 mg/dL (8.5-10.1); CARBON DIOXIDE 28.8 mmol/L (21.0-32.0); CHLORIDE - SERUM 100 mmol/L (98-107); CREATININE - SERUM 0.9 mg/dL (0.6-1.3); GLUCOSE 116 mg/dL (74-106); POTASSIUM - SERUM 3.5 mmol/L (3.5-5.1); SODIUM 134 mmol/L (136-145); UREA NITROGEN 10 mg/dL (7-18); eGFR NON AFRICAN AMERICAN 89 mL/min (90-120)
[2020-05-30 22:57] LABS: ALBUMIN 2.6 g/dL (3.4-5.0); ALKALINE PHOSPHATASE 119 U/L (30-120); ALT (SGPT) 22 U/L (10-68); BILIRUBIN - TOTAL 0.21 mg/dL (0.2-1.3); LIPASE 147 U/L (73-393); PROTEIN - SERUM 7.7 g/dL (6.4-8.2)
[2020-05-31] VITALS (15 sets, daily range): BP systolic 86–136; BP diastolic 50–73; BMI 29.5
--- NOTE | 2020-05-31 00:31 | NUR ---
PT TO CT
--- NOTE | 2020-05-31 00:49 | NUR ---
PT BACK FROM CT
--- NOTE | 2020-05-31 03:52 | NUR ---
INFUSION OF ZOSYN COMPLETE AT THIS TIME.
[2020-05-31 04:23] LABS: INR 1.04 (0.85-1.17); PROTIME 13.5 SECONDS (11.6-15.0)
--- NOTE | 2020-05-31 06:04 | NUR ---
INFUSION OF VANCOMYCIN COMPLETE AT THIS TIME.
--- NOTE | 2020-05-31 07:48 | NUR ---
RECEIVED RESTING QUIETLY. IV INFUSING IN LEFT AC AT 75 ML/HR COVID SWAB OBTAINED AND SENT TO LAB
[2020-05-31 09:30] LABS: BILIRUBIN NEGATIVE (NEGATIVE); KETONE NEGATIVE (NEGATIVE); NITRITE NEGATIVE (NEGATIVE); UROBILINOGEN NORMAL mg/dL (< 2)
--- NOTE | 2020-05-31 09:56 | NUR ---
TELEPHONE CONSENT OBTAINED FROM SPOUSE AND PATIENT SENT TO CT
--- NOTE | 2020-05-31 10:14 | NUR ---
REPORT CALLED TO [facility]ANCH[facility] WILL PLACE IN ROOM [address]
--- NOTE | 2020-05-31 10:18 | NUR ---
I have reviewed this patient and I concur with the Shift Assessment completed by the Licensed Practical Nurse today this shift.
[2020-05-31 17:43] LABS: MACROPHAGES BF 10 %; MESOTHELIALS BF 2 %; NEUT - BF 72 %
--- NOTE | 2020-05-31 23:44 | NUR ---
PT IN BED, NO NEEDS NOTED, RESPIRATIONS EVEN/UNLABORED, SAFETY PRECAUTIONS IN PLACE, FLUIDS/CALL LIGHT WITHIN REACH, IV PATENT, RUNNING
[2020-06-01] VITALS: BP 150/71
--- NOTE | 2020-06-01 01:48 | NUR ---
PT HAS TELE UNIT RUNNING 72 SINUS RYTHM AT THIS TIME,
--- NOTE | 2020-06-01 03:19 | NUR ---
PRN MORPHINE GIVEN FOR 7 OF 10 GENERALIZED JOINT PAIN
--- NOTE | 2020-06-01 03:35 | NUR ---
PT STATES PAIN REMAINS AT 7 OF 10 AFTER PRN MORPHINE GIVEN AT 0300, CHANGED OUT NS BAG
[2020-06-01 04:00] VITALS: BP 132/70
[2020-06-01 04:45] LABS: BASOPHILS 0.5 % (0-2); EOSINOPHILS 2.2 % (0-7); HEMATOCRIT 33.1 % (42.0-54.0); HEMOGLOBIN 10.5 g/dL (13.5-17.5); IMMATURE GRANULOCYTES 0.2 % (0-5); LYMPHOCYTES 27.6 % (15-50); MCH 28.2 pg (26.0-34.0); MCHC 31.7 g/dL (31.0-37.0); MCV 88.7 fL (80.0-100.0); MEAN PLATELET VOLUME 8.4 fL (7.4-10.4); MONOCYTES 9.8 % (2-11); NEUTROPHILS 59.7 % (40-80); PLATELET COUNT 441 10x3/uL (130-400); RBC 3.73 10x6/uL (4.20-6.10); RDW 14.5 % (11.5-14.5); WBC 5.9 10x3/uL (4.8-10.8)
[2020-06-01 05:06] LABS: ALBUMIN 2.4 g/dL (3.4-5.0); ALKALINE PHOSPHATASE 126 U/L (30-120); ALT (SGPT) 18 U/L (10-68); BILIRUBIN - TOTAL 0.36 mg/dL (0.2-1.3); CALC OSMOLALITY 275 mosm/kg (275-300); CALCIUM 8.7 mg/dL (8.5-10.1); CARBON DIOXIDE 29.7 mmol/L (21.0-32.0); CHLORIDE - SERUM 103 mmol/L (98-107); CREATININE - SERUM 0.8 mg/dL (0.6-1.3); GLUCOSE 114 mg/dL (74-106); MAGNESIUM - SERUM 2.1 mg/dL (1.8-2.4); POTASSIUM - SERUM 3.9 mmol/L (3.5-5.1); PROTEIN - SERUM 7.4 g/dL (6.4-8.2); SODIUM 139 mmol/L (136-145); eGFR NON AFRICAN AMERICAN > 90 mL/min (90-120)
[2020-06-01 05:10] LABS: UREA NITROGEN 4 mg/dL (7-18)
--- NOTE | 2020-06-01 06:50 | NUR ---
RESTING IN BED WITH EYES OPEN. NO C/O PAIN. NO S/S OF ACUTE DISTRESS NOTED. CALL LIGHT IN REACH. DENIES ANY NEEDS AT THIS TIME. WILL CONTINUE TO MONITOR.
[2020-06-01 08:53] VITALS: BP 120/80
[2020-06-01 12:01] VITALS: BP 132/58
[2020-06-01 13:13] VITALS: Ht 172.7 cm; Wt 88.0 kg
--- NOTE | 2020-06-01 15:07 | NUR ---
I have reviewed this patient and I concur with the Shift Assessment completed by the Licensed Practical Nurse today this shift.
--- NOTE | 2020-06-01 17:26 | NUR ---
DISCHARGED PATIENT HOME WITH VIA WHEELCHAIR. DISCONTINUED IV, CATHETER TIP INTACT. WENT OVER DISCHARGE INSTRUCTIONS WITH FAMILY, VERBALIZED UNDERSTANDING. DENIES ANYTHING FURTHER.
--- NOTE | 2020-06-02 06:38 | MORECARE ---
CASE MANAGEMENT DISCHARGE SUMMARY PATIENT: ABRIL CALLAHAN UNIT: [id number] ADM DATE: 05/31/20 AGE: 70 : 52 SEX: M ROOM/BED: D.2212 AUTHOR: TORI GARCIA PHYSICIAN: REFERRING PHYSICIAN: WALI NINO MD DATE OF SERVICE: 06/02/20 Discharge Plan Patient Name: ABRIL CALLAHAN Facility: [facility]:[place] : 1950 Planned Disposition: Home or Self Care Anticipated Discharge Date: Discharge Date: 06/01/2020 Expected LOS: Initial Reviewer: [email or web address] Initial Review Date: 05/31/2020 Generated: 06/02/20 7:38 am DCPIA - Discharge Planning Initial Assessment Updated by [email or web address]: Carmen Marie on 06/02/20 6:38 am * Is the patient Alert and Oriented? Yes * How many steps to enter\exit or inside your home? 2/0 * PCP [facility] * [place]acy [place] * Preadmission Environment Home with Family * ADLs Partial Dependent * Partial ADLs (Assistance needed) Ambulation Medication Management * Equipment Crutch Nebulizer Other Oxygen Rolling Walker Walker Wheelchair * Other Equipment ELECTRIC BED * List name and contact numbers for known caregivers / representatives who currently or will assist patient after discharge: RAJEEV () [phone] * Verbal permission to speak to the caregivers and representatives has been obtained from the patient. Yes * Community resources currently utilized None * Additional services required to return to the preadmission environment? No * Can the patient safely return to the preadmission environment? Yes * Has this patient been hospitalized within the prior 30 days at any hospital? Yes Patient Name: ABRIL CALLAHAN Page [id number] at 0638 All edits/amendments must be made on the electronic document DICTATION DATE: 06/02/20637 RESEARCH & INSIGHTS EXECUTIVE: LESLIE 06/02/20637 RPT#: [id number] DC DATE:06/01/20 STATUS: DIS IN [facility] [address] [place] [address] END OF REPORT
--- NOTE | 2020-06-02 06:45 | MORECARE ---
CASE MANAGEMENT DISCHARGE SUMMARY PATIENT: ABRIL CALLAHAN UNIT: [id number] ADM DATE: 05/31/20 AGE: 70 : 52 SEX: M ROOM/BED: D.2212 AUTHOR: JOSEDOC PHYSICIAN: REFERRING PHYSICIAN: WALI NINO MD DATE OF SERVICE: 06/02/20 Discharge Plan Patient Name: ABRIL CALLAHAN Facility: [facility]:[place] : 1950 Planned Disposition: Home or Self Care Anticipated Discharge Date: Discharge Date: 06/01/2020 Expected LOS: Initial Reviewer: [email or web address] Initial Review Date: 05/31/2020 Generated: 06/02/20 7:44 am Comments DCP- Discharge Planning Updated by [email or web address]: Carmen Marie on 06/02/20 5:[address] LATE ENTRY 06/01/20 @ 1400 Patient Name: ABRIL CALLAHAN Admission Status: ER Accout number: [id number] Admission Date: 05-31-2020 : 1950 Admission Diagnosis:INFCT FOL A PROC, SUPERFIC INCISIONAL SURGICAL SITE, IN Attending: GREGORY Current LOS: 1 Anticipated DC Date: Planned Disposition: Home or Self Care Primary Insurance: [email or web address]ATION Discharge Planning Comments: CM met with patient & spouse to complete initial dc planning assessment. CM educated patient on the CM role and verbal consent given by patient to complete assessment. Patient lives at home with his where he is partially dependent with his care. His is there to help him with whatever he needs. He also has adult children who live at home and on property who can help also. At discharge patient plans to return home and feels this is a safe discharge. CM discussed availability of home health, rehab services, and medical equipment. He states that he has a wheelchair, walker, O2, Port O2, concentrator, nebulizer, shower chair BSC all at home. [facility] [place] He did not want any home health, he didn't think he needed it. Patient denied known discharge needs at this time. CM will continue to follow and will assist as needed with dc plans/needs. [employer] Teacher: Carmen Marie DCPIA - Discharge Planning Initial Assessment Updated by [email or web address]: Carmen Marie on 06/02/20 6:38 am * Is the patient Alert and Oriented? Yes * How many steps to enter\exit or inside your home? 2/0 * PCP [facility] * [place] * Preadmission Environment Home with Family * ADLs Partial Dependent * Partial ADLs (Assistance needed) Ambulation Medication Management * Equipment Crutch Nebulizer Other Oxygen Rolling Walker Walker Wheelchair * Other Equipment ELECTRIC BED * List name and contact numbers for known caregivers / representatives who currently or will assist patient after discharge: RAJEEV () [phone] * Verbal permission to speak to the caregivers and representatives has been obtained from the patient. Yes * Community resources currently utilized None * Additional services required to return to the preadmission environment? No * Can the patient safely return to the preadmission environment? Yes * Has this patient been hospitalized within the prior 30 days at any hospital? Yes Last DP export: 06/02/20 5:38 a Patient Name: ABRIL CALLAHAN Page [id number] at 0645 All edits/amendments must be made on the electronic document DICTATION DATE: 06/02/20643 AIRCRAFT RIGGING AND CONTROLS MECHANIC: LESLIE 06/02/20643 RPT#: [id number] DC DATE:06/01/20 STATUS: DIS IN [facility] [address] [facility] [place] [address] END OF REPORT
== END 2020-06-01 17:29 | disposition home or self-care (01) | DRG 446 ==
LOC: D.ER 21:53 → D.MS 05-31 02:18 → D.EDHOLD 05-31 02:18 → D.MS 05-31 10:07
PROVIDERS: Family Medicine; Radiology Diagnostic Radiology; ADMIT Family Medicine; ATTEND Family Medicine
PROC: 0F943ZZ Drainage of Gallbladder, Percutaneous Approach (ICD-10-PCS; principal; 2020-05-31 10:00)
DX: S36.12 Injury of gallbladder (principal); D64.9 Anemia, unspecified; F03.90 Unspecified dementia, unspecified severity, without behavioral disturbance, psychotic disturbance, mood disturbance, and anxiety; E03.9 Hypothyroidism, unspecified; F32.9 Major depressive disorder, single episode, unspecified; E78.5 Hyperlipidemia, unspecified; K21.9 Gastro-esophageal reflux disease without esophagitis; G89.29 Other chronic pain; M54.9 Dorsalgia, unspecified; M19.90 Unspecified osteoarthritis, unspecified site; G47.33 Obstructive sleep apnea (adult) (pediatric)